=== PATIENT | female | born 1955 | race Caucasian/White ===

== ENCOUNTER 2020-05-12 10:23 | Outpatient (REF) | payer OTHER, SELFPAY ==
[2020-05-12 12:10] LABS: Hematocrit 39.1 % (37-47); Hemoglobin 12.6 g/dl (12.0-16.0); Mean Corpuscular HGB Conc 32.2 g/dl (31.0-35.0); Mean Corpuscular Hemoglobin 29.9 pg (27.0-33.0); Mean Corpuscular Volume 92.7 fL (80-98); Platelet Count 208 X10*3/uL (160-400); Red Blood Count 4.22 X10*6/uL (4.20-5.50); Red Cell Distribution Width 13.3 % (11.0-16.0); White Blood Count 6.5 X10*3/uL (4.8-10.8)
[2020-05-12 12:27] LABS: Alanine Aminotransferase 27 U/L (0-31); Albumin Level 4.5 g/dL (3.5-5.0); Alkaline Phosphatase 73 U/L (39-117); Anion Gap 12 (12-20); Aspartate Amino Transferase 20 U/L (5-31); Bilirubin Total 0.7 mg/dL (0.0-1.0); Blood Urea Nitrogen 14 mg/dL (9-16); Calcium 9.3 mg/dL (8.4-10.2); Carbon Dioxide 28 mmol/L (22-29); Chloride 104 mmol/L (96-108); Estimated Glomerular Filt Rate > 60; Glucose Fasting 124 mg/dL (60-99); Potassium 4.7 mmol/l (3.3-5.1); Sodium 139 mmol/L (135-145)
[2020-05-12 12:35] LABS: Estimated Average Glucose 140 mg/dL; Hemoglobin A1c % 6.5 %
[2020-05-12 12:41] LABS: Creatinine Urine 78.86 mg/dL; Microalbum/Creatinine Ratio Ur 21.5 ug/mg cr
[2020-05-12 12:48] LABS: Thyroid Stimulating Hormone 0.87 mIU/mL (0.32-4.0)
[2020-05-15 22:19] LABS: Vitamin B12 328 pg/mL (200-900)
[2020-05-16 18:12] LABS: Methylmalonic Acid 199 nmol/L (87-318)
== END 2020-05-12 10:24 | disposition home or self-care (01) ==
LOC: HO.LAB 10:23
PROVIDERS: PCP Internal Medicine; Visit Provider Internal Medicine
DX: I10 Essential (primary) hypertension (principal); E11.9 Type 2 diabetes mellitus without complications; E78.00 Pure hypercholesterolemia, unspecified; E53.8 Deficiency of other specified B group vitamins
CPT/HCPCS: 36415; 80053; 82043; 82607; 83036; 83921; 84443; 85027

== ENCOUNTER 2020-09-27 16:20 | Outpatient (REF) | payer OTHER, SELFPAY ==
--- NOTE | ~2020-09-27 | XR_ITS ---
EXAMINATION: XR LUMBOSACRAL SPINE CLINICAL INFORMATION: Low back pain COMPARISON: None TECHNIQUE: Three views of the lumbosacral spine. FINDINGS: There are 5 nonrib bearing lumbar vertebra. No acute fractures identified. There is a grade 1 spondylolisthesis L4-L5. There is narrowing of the L5-S1 disc space. Prominent facet arthropathy is seen L4-S1. There is some spurring involving the lower thoracic spine. No destructive bony lesion appreciated. XR/XR lumbar spine 2-3V IMPRESSION: Degenerative change of the lumbar spine most significant at L4-S1 with grade 1 spondylolisthesis L4-L5 and prominent facet arthropathy.
== END 2020-09-27 16:21 | disposition home or self-care (01) ==
LOC: HO.XRAY 16:20
PROVIDERS: PCP Internal Medicine; Visit Provider Internal Medicine
DX: M54.42 Lumbago with sciatica, left side (principal); M54.41 Lumbago with sciatica, right side; G89.29 Other chronic pain
CPT/HCPCS: 72100

== ENCOUNTER 2020-12-02 10:20 | Outpatient (REF) | payer OTHER, SELFPAY ==
[2020-12-02 11:20] LABS: Hematocrit 40.1 % (37-47); Hemoglobin 12.7 g/dl (12.0-16.0); Mean Corpuscular HGB Conc 31.7 g/dl (31.0-35.0); Mean Corpuscular Hemoglobin 29.2 pg (27.0-33.0); Mean Corpuscular Volume 92.2 fL (80-98); Mean Platelet Volume 12.7 fL (9.4-12.3); Platelet Count 207 X10*3/uL (160-400); Red Blood Count 4.35 X10*6/uL (4.20-5.50); Red Cell Distribution Width 13.7 % (11.0-16.0)
[2020-12-02 11:25] LABS: Glucose Urine UA NEG (NEG); Leukocyte Esterase Urine NEG (NEG); Nitrite Urine NEG (NEG); Specific Gravity - Urine 1.015 (1.005-1.025); Urine Blood NEG (NEG); Urine Ketones NEG (NEG); Urine Protein NEG (NEG-TRACE)
[2020-12-02 11:27] LABS: Appearance Urine CLEAR; Color Urine YELLOW
[2020-12-02 11:32] LABS: Estimated Average Glucose 143 mg/dL; Hemoglobin A1c % 6.6 %
[2020-12-02 11:38] LABS: Alanine Aminotransferase 20 U/L (0-31); Albumin Level 4.5 g/dL (3.5-5.0); Alkaline Phosphatase 75 U/L (39-117); Anion Gap 15 (12-20); Aspartate Amino Transferase 20 U/L (5-31); Bilirubin Total 0.9 mg/dL (0.0-1.0); Blood Urea Nitrogen 11 mg/dL (9-16); Calcium 9.6 mg/dL (8.4-10.2); Carbon Dioxide 27 mmol/L (22-29); Chloride 98 mmol/L (96-108); Cholesterol 154 mg/dL; Estimated Glomerular Filt Rate > 60; Glucose Fasting 128 mg/dL (60-99); HDL Cholesterol 60 mg/dL; LDL Cholesterol Calculated 81 mg/dl; Potassium 4.4 mmol/L (3.3-5.1); Sodium 136 mmol/L (135-145); Total Protein 7.3 g/dL (6.5-8.0); Triglycerides 69 mg/dL
[2020-12-02 11:43] LABS: Creatinine Urine 41.94 mg/dL; Microalbum/Creatinine Ratio Ur 57.2 ug/mg cr
[2020-12-02 12:00] LABS: Thyroid Stimulating Hormone 0.62 uIU/mL (0.32-4.0)
== END 2020-12-02 10:21 | disposition home or self-care (01) ==
LOC: HO.LAB 10:20
PROVIDERS: PCP Internal Medicine; Visit Provider Internal Medicine
DX: I10 Essential (primary) hypertension (principal); E11.9 Type 2 diabetes mellitus without complications; E78.00 Pure hypercholesterolemia, unspecified
CPT/HCPCS: 36415; 80053; 80061; 81003; 82043; 83036; 84443; 85027

== ENCOUNTER 2021-06-02 09:29 | Outpatient (REF) | payer OTHER, SELFPAY ==
[2021-06-02 10:02] LABS: Estimated Average Glucose 146 mg/dL; Hemoglobin A1c % 6.7 %
[2021-06-02 10:20] LABS: Alanine Aminotransferase 18 U/L (0-31); Albumin Level 4.5 g/dL (3.5-5.0); Alkaline Phosphatase 78 U/L (39-117); Anion Gap 13 (12-20); Aspartate Amino Transferase 17 U/L (5-31); Bilirubin Total 0.8 mg/dL (0.0-1.0); Blood Urea Nitrogen 15 mg/dL (9-16); Calcium 9.6 mg/dL (8.4-10.2); Carbon Dioxide 29 mmol/L (22-29); Chloride 104 mmol/L (96-108); Estimated Glomerular Filt Rate > 60; Glucose Random 136 mg/dL (60-115); Potassium 4.9 mmol/L (3.3-5.1); Sodium 141 mmol/L (135-145); Total Protein 7.2 g/dL (6.5-8.0)
== END 2021-06-02 09:30 | disposition home or self-care (01) ==
LOC: HO.LAB 09:29
PROVIDERS: PCP Internal Medicine; Visit Provider Internal Medicine
DX: I10 Essential (primary) hypertension (principal); E11.9 Type 2 diabetes mellitus without complications
CPT/HCPCS: 36415; 80053; 83036

== ENCOUNTER 2021-12-27 09:10 | Outpatient (REF) | payer OTHER, SELFPAY ==
[2021-12-27 09:28] LABS: MANUAL DIFF FLAG NO
[2021-12-27 09:42] LABS: Basophils Absolute Auto 0.1 X10*3/uL (0.0-0.2); Basophils Percent Auto 0.7 % (0-2); Eosinophils Absolute Auto 0.3 X10*3/uL (0.0-0.4); Eosinophils Percent Auto 3.9 % (0-4); Hemoglobin 12.9 g/dl (12.0-16.0); Imm Gran Abs Auto 0.02 X10*3/uL (0.00-0.03); Imm Gran Pct Auto 0.3 % (0.0-0.4); Lymphocytes Absolute Auto 1.1 X10*3/uL (1.2-4.9); Mean Corpuscular HGB Conc 31.5 g/dl (31.0-35.0); Mean Corpuscular Hemoglobin 28.6 pg (27.0-33.0); Mean Corpuscular Volume 90.9 fL (80.0-98.0); Mean Platelet Volume 11.7 fL (9.4-12.3); Monocytes Absolute Auto 0.5 X10*3/uL (0.1-1.2); Neutrophils Absolute Auto 5.5 x10*3/uL (2.0-8.3); Neutrophils Percent Auto 73.1 % (45-73); Platelet Count 231 X10*3/uL (160-400); Red Blood Count 4.51 X10*6/uL (4.20-5.50); Red Cell Distribution Width 13.8 % (11.0-16.0); White Blood Count 7.5 X10*3/uL (4.8-10.8)
[2021-12-27 10:01] LABS: Estimated Average Glucose 154 mg/dL
[2021-12-27 10:02] LABS: Alanine Aminotransferase 25 U/L (0-31); Albumin Level 4.4 g/dL (3.5-5.0); Alkaline Phosphatase 77 U/L (39-117); Anion Gap 13 (12-20); Aspartate Amino Transferase 21 U/L (5-31); Bilirubin Total 0.7 mg/dL (0.0-1.0); Blood Urea Nitrogen 16 mg/dL (9-16); Calcium 9.7 mg/dL (8.4-10.2); Carbon Dioxide 26 mmol/L (22-29); Chloride 104 mmol/L (96-108); Cholesterol 170 mg/dL; Estimated Glomerular Filt Rate > 60; Glucose Fasting 155 mg/dL (60-99); HDL Cholesterol 51 mg/dL; LDL Cholesterol Calculated 101 mg/dl; Potassium 4.8 mmol/L (3.3-5.1); Sodium 138 mmol/L (135-145); Total Protein 7.5 g/dL (6.5-8.0); Triglycerides 91 mg/dL
[2021-12-27 10:25] LABS: Free T4 (Free Thyroxine) 1.21 ng/dL (0.71-1.85); Thyroid Stimulating Hormone 0.94 uIU/mL (0.32-4.0)
[2021-12-27 11:22] LABS: Appearance Urine CLEAR; Color Urine YELLOW; Glucose Urine UA NEG (NEG); Leukocyte Esterase Urine NEG (NEG); Nitrite Urine NEG (NEG); Urine Blood NEG (NEG); Urine Ketones NEG (NEG); Urine Protein TRACE MG/DL (NEG-TRACE)
[2021-12-27 11:42] LABS: RBC Urine 0 /HPF (0); WBC Urine 0 /HPF (0-4)
[2021-12-27 11:56] LABS: Microalbum/Creatinine Ratio Ur 74.3 ug/mg cr
== END 2021-12-27 09:11 | disposition home or self-care (01) ==
LOC: HO.LAB 09:10
PROVIDERS: PCP Internal Medicine; Visit Provider Internal Medicine
DX: E11.9 Type 2 diabetes mellitus without complications (principal); M54.41 Lumbago with sciatica, right side; G89.29 Other chronic pain; E78.00 Pure hypercholesterolemia, unspecified
CPT/HCPCS: 36415; 80053; 80061; 81001; 82043; 83036; 84439; 84443; 85025

== ENCOUNTER 2022-06-19 09:23 | Outpatient (REF) | payer OTHER, SELFPAY ==
[2022-06-19 10:21] LABS: Estimated Average Glucose 148 mg/dL; Hemoglobin A1c % 6.8 %
[2022-06-19 10:27] LABS: Anion Gap 16 (12-20); Blood Urea Nitrogen 17 mg/dL (9-16); Calcium 9.8 mg/dL (8.4-10.2); Carbon Dioxide 28 mmol/L (22-29); Chloride 102 mmol/L (96-108); Estimated Glomerular Filt Rate > 60; Glucose Random 137 mg/dL (60-115); Potassium 5.2 mmol/L (3.3-5.1); Sodium 141 mmol/L (135-145)
== END 2022-06-19 09:24 | disposition home or self-care (01) ==
LOC: HO.LAB 09:23
PROVIDERS: PCP Internal Medicine; Visit Provider Internal Medicine
DX: E11.9 Type 2 diabetes mellitus without complications (principal)
CPT/HCPCS: 36415; 80048; 83036

== ENCOUNTER 2023-02-08 09:58 | Outpatient (REF) | payer OTHER, SELFPAY | END 2023-02-08 09:59 | disposition home or self-care (01) | LOC: HO.LAB 09:58 | PROVIDERS: Visit Provider Internal Medicine | DX: I10 Essential (primary) hypertension (principal); E11.9 Type 2 diabetes mellitus without complications | CPT/HCPCS: 36415; 80053; 80061; 81001; 82043; 83036; 84443; 85025 ==

== ENCOUNTER 2023-06-13 10:00 | Outpatient (REF) | payer MEDICARE, SELFPAY ==
[2023-06-13 10:24] LABS: MANUAL DIFF FLAG NO
[2023-06-13 11:04] LABS: Basophils Percent Auto 0.6 % (0-2); Eosinophils Absolute Auto 0.2 X10*3/uL (0.0-0.4); Eosinophils Percent Auto 2.3 % (0-4); Hematocrit 38.9 % (37.0-47.0); Hemoglobin 12.7 g/dl (12.0-16.0); Imm Gran Abs Auto 0.03 X10*3/uL (0.00-0.03); Imm Gran Pct Auto 0.4 % (0.0-0.4); Lymphocytes Absolute Auto 1.4 X10*3/uL (1.2-4.9); Mean Corpuscular HGB Conc 32.6 g/dl (31.0-35.0); Mean Corpuscular Hemoglobin 29.3 pg (27.0-33.0); Mean Corpuscular Volume 89.8 fL (80.0-98.0); Mean Platelet Volume 11.3 fL (9.4-12.3); Monocytes Absolute Auto 0.6 X10*3/uL (0.1-1.2); Neutrophils Percent Auto 69.7 % (45-73); Platelet Count 363 X10*3/uL (160-400); Red Blood Count 4.33 X10*6/uL (4.20-5.50); Red Cell Distribution Width 12.6 % (11.0-16.0); White Blood Count 7.1 X10*3/uL (4.8-10.8)
[2023-06-13 11:16] LABS: Estimated Average Glucose 143 mg/dL; Hemoglobin A1c % 6.6 % (<6.0)
[2023-06-13 11:41] LABS: Alanine Aminotransferase 13 U/L (0-31); Albumin Level 4.3 g/dL (3.5-5.0); Alkaline Phosphatase 69 U/L (39-117); Anion Gap 13 (12-20); Aspartate Amino Transferase 17 U/L (5-31); Bilirubin Total 0.9 mg/dL (0.0-1.0); Blood Urea Nitrogen 12 mg/dL (9-16); Calcium 9.3 mg/dL (8.4-10.2); Carbon Dioxide 29 mmol/L (22-29); Chloride 104 mmol/L (96-108); Estimated Glomerular Filt Rate > 60; Glucose Random 122 mg/dL (60-115); Potassium 4.6 mmol/L (3.3-5.1); Sodium 141 mmol/L (135-145); Total Protein 7.5 g/dL (6.5-8.0)
== END 2023-06-13 10:01 | disposition home or self-care (01) ==
LOC: HO.LAB 10:00
PROVIDERS: PCP Internal Medicine; Visit Provider Internal Medicine
DX: M54.41 Lumbago with sciatica, right side (principal); G89.29 Other chronic pain; R42 Dizziness and giddiness; E11.9 Type 2 diabetes mellitus without complications; I10 Essential (primary) hypertension
CPT/HCPCS: 36415; 80053; 83036; 85025

== ENCOUNTER 2023-11-17 08:29 | Outpatient (REF) | payer MEDICARE, SELFPAY ==
[2023-11-17 09:04] LABS: MANUAL DIFF FLAG NO
[2023-11-17 09:12] LABS: Basophils Absolute Auto 0.1 X10*3/uL (0.0-0.2); Basophils Percent Auto 0.9 % (0-2); Eosinophils Absolute Auto 0.4 X10*3/uL (0.0-0.4); Eosinophils Percent Auto 5.2 % (0-4); Hematocrit 37.1 % (37.0-47.0); Hemoglobin 12.1 g/dl (12.0-16.0); Imm Gran Abs Auto 0.02 X10*3/uL (0.00-0.03); Imm Gran Pct Auto 0.3 % (0.0-0.4); Lymphocytes Absolute Auto 1.3 X10*3/uL (1.2-4.9); Lymphocytes Percent Auto 19.2 % (20-40); Mean Corpuscular HGB Conc 32.6 g/dl (31.0-35.0); Mean Corpuscular Hemoglobin 29.8 pg (27.0-33.0); Mean Corpuscular Volume 91.4 fL (80.0-98.0); Mean Platelet Volume 11.9 fL (9.4-12.3); Monocytes Absolute Auto 0.6 X10*3/uL (0.1-1.2); Monocytes Percent Auto 8.4 % (2-11); Neutrophils Absolute Auto 4.6 x10*3/uL (2.0-8.3); Platelet Count 208 X10*3/uL (160-400); Red Blood Count 4.06 X10*6/uL (4.20-5.50); Red Cell Distribution Width 13.5 % (11.0-16.0); White Blood Count 6.9 X10*3/uL (4.8-10.8)
[2023-11-17 09:28] LABS: Estimated Average Glucose 146 mg/dL; Hemoglobin A1c % 6.7 % (<6.0)
[2023-11-17 09:52] LABS: Alanine Aminotransferase 15 U/L (0-31); Albumin Level 4.2 g/dL (3.5-5.0); Alkaline Phosphatase 65 U/L (39-117); Anion Gap 13 (12-20); Aspartate Amino Transferase 14 U/L (5-31); Bilirubin Total 0.7 mg/dL (0.0-1.0); Blood Urea Nitrogen 16 mg/dL (9-16); Calcium 9.7 mg/dL (8.4-10.2); Carbon Dioxide 28 mmol/L (22-29); Chloride 104 mmol/L (96-108); Cholesterol 153 mg/dL (<200); Estimated Glomerular Filt Rate > 60; Glucose Random 125 mg/dL (60-115); HDL Cholesterol 67 mg/dL (>40); LDL Cholesterol Calculated 72 mg/dL (<100); Magnesium 1.5 mg/dL (1.6-2.6); Potassium 4.6 mmol/L (3.3-5.1); Sodium 140 mmol/L (135-145); Total Protein 7.2 g/dL (6.5-8.0); Triglycerides 72 mg/dL (<150)
[2023-11-17 10:07] LABS: TSH reflex Free T4 0.99 uIU/mL (0.32-4.0)
[2023-11-17 10:24] LABS: Creatinine Urine 167.48 mg/dL; Microalbum/Creatinine Ratio Ur 22.6 ug/mg cr (<30)
[2023-11-17 10:34] LABS: Vitamin B12 714 pg/mL (200-900)
[2023-11-17 10:35] LABS: Appearance Urine Clear; Color Urine Yellow; Glucose Urine UA Negative (Negative); Leukocyte Esterase Urine Negative (Negative); Nitrite Urine Negative (Negative); PH 6.5 (5.0-9.0); Urine Blood Negative (Negative); Urine Ketones Negative (Negative); Urine Protein Negative (Neg-Trace)
== END 2023-11-17 08:30 | disposition home or self-care (01) ==
LOC: HO.LAB 08:29
PROVIDERS: PCP Internal Medicine; Visit Provider Internal Medicine
DX: I10 Essential (primary) hypertension (principal); E11.9 Type 2 diabetes mellitus without complications; R60.0 Localized edema
CPT/HCPCS: 36415; 80053; 80061; 81003; 82043; 82570; 82607; 83036; 83735; 84443; 85025

== ENCOUNTER 2024-04-14 08:08 | Outpatient (REF) | payer MEDICARE, SELFPAY ==
[2024-04-14 09:10] LABS: Estimated Average Glucose 140 mg/dL; Hemoglobin A1c % 6.5 % (<6.0); Total Hemoglobin (HGBA1C) 3132.5965 umol/L
[2024-04-14 09:47] LABS: Anion Gap 14 (12-20); Blood Urea Nitrogen 15 mg/dL (9-16); Calcium 9.7 mg/dL (8.4-10.2); Carbon Dioxide 28 mmol/L (22-29); Chloride 105 mmol/L (96-108); Estimated Glomerular Filt Rate > 60; Glucose Random 123 mg/dL (60-115); Potassium 4.5 mmol/L (3.3-5.1); Sodium 142 mmol/L (135-145)
[2024-04-14 11:35] LABS: Appearance Urine Clear; Color Urine Yellow; Glucose Urine UA Negative (Negative); Leukocyte Esterase Urine Negative (Negative); Nitrite Urine Negative (Negative); PH 7.5 (5.0-9.0); Urine Blood Negative (Negative); Urine Ketones Negative (Negative); Urine Protein Negative (Neg-Trace)
== END 2024-04-14 08:09 | disposition home or self-care (01) ==
LOC: HO.LAB 08:08
PROVIDERS: PCP Internal Medicine; Visit Provider Internal Medicine
DX: N39.41 Urge incontinence (principal); I10 Essential (primary) hypertension; R35.0 Frequency of micturition; E11.9 Type 2 diabetes mellitus without complications
CPT/HCPCS: 36415; 80048; 81003; 83036; 87086

== ENCOUNTER 2024-11-13 09:13 | Outpatient (REF) | payer MEDICARE, SELFPAY ==
--- OUTSIDE RECORDS SUMMARY | 2024-11-13 09:16 | XMS_ITS ---
Author Organization [facility] Address [address] [place] [address] Care Team Providers Care Kit Assembler Name Role Phone Campos Lawson MD Primary Care Provider Robyn Campbell [phone] REASON FOR VISIT updating health insurance Encounters Encounter Location Date Provider Diagnosis [address] [address] 08/06/2024 Robyn Chavez Plan Of Treatment Next Appt Details Provider Name:Robyn spicer, 11/24/2024 09:30:00 AM, [address] [place], [address], Progress Notes * Allen CARDENASenDOB: [birth year] (68 yo F)Acc No.[id number]:08/06/2024 Patient:?Sarina CARDENAS :1955???Age:68 Y???Sex:Female Address:[address] [place] [address], [address] * true * Date:? Generated for Printi ng/Fafrederickg/eTransmitting on:?11/13/2024 09:16 AM EDT
--- OUTSIDE RECORDS SUMMARY | 2024-11-13 09:16 | XMS_ITS ---
[facility] Organization [facility] Address [address] [place] [address] Care Team Providers Care Assistant Professor Of Mathematics Name Role Phone Campos Lawson MD Primary Care Provider Robyn Campbell Unavailable [phone] Allergies Allergen (clinical drug ingredient) Drug/Non Drug Allergy documented on EMR Reaction Allergy Type Onset Date Status ibuprofen Advil anaphylaxis Drug Allergy Activ e Aleve anaphylaxis Drug Allergy Activ e Motrin anaphylaxis Drug Allergy Activ e REASON FOR VISIT At Risk Footcare, Toe Irritation Medications Medication SIG (Take, Route, Frequency, Duration) Notes Start Date End Date Status Lisinopril-hydroCHLOROthia zide 20-12.5 MG Oral for 90 Days Active oxyCODONE-Acetaminophen 5-325 MG TAKE 1 TABLET BY MOUTH EVERY 6 HOURS NEEDED FOR PAIN Oral for 7 Days Active metFORMIN HCl 1000 MG TAKE 1 TABLET BY M OUTH TWICE A DAY WITH FOOD Oral for 90 Days Active Simvastatin 40 MG Oral for 90 Days Active valACYclovir HCl 1 GM Oral for 12 Days Active Solifenacin Succinate 10 MG Oral for 90 Days Active Extra Depth Orthopedic Shoes (1 Pair) with Customized Heat Molded Multidensity Innersoles (3 Pair) as directed Dx: NIDDM/Polyneuropathy (E11.42), Hammertoe Foot Deformity (M20.41,M20.42), Preulcerative Skin Lesion(s) (L85.1 09/08/2024 Active LORazepam 1 MG Oral for 40 Days Active Citalopram Hydrobromide 20 MG TAKE 1 TABLET BY MOUTH EVERY DAY Oral for 90 Days Activ e Social History Tobacco Use: Social History Observation [...] Are you an other tobacco user? No Problems Problem Type SNOMED Code ICD Code Onset Dates Problem Status W/U Status Risk Notes Problem Polyneuropathy due to type 2 diabetes mellitus (136072410) Type 2 diabetes mellitus with diabetic polyneuropathy (E11.42) Active confirmed Problem Acquired hammer toe of right foot (2350663943794397 ) Other hammer toe(s) (acquired), right foot (M20.41) Active confirmed Problem Acquired hammer toe of left foot (0594905504110795 ) Other hammer toe(s) (acquired), left foot (M20.42) Active confirmed Vital Signs Height 5 ft 2 in in 09/08/2024 Weight 283 lbs 09/08/2024 BMI 51.76 kg/m2 09/08/2024 Blood pressure systolic 130 mm Hg 09/08/19 25 Blood pressure diastolic 80 mm Hg 025 Encounters Encounter Location Date Provider Diagnosis [facility] [address] [address] 09/08/2024 Robyn Chavez Type 2 diabetes mellitus with diabetic polyneuropathy E11.42 ; Tinea unguium B35.1 ; Other hammer toe(s) (acquired), right foot M20.41 and Other hammer toe(s) (acquired), left foot M20.42 Assessments Encounter Date Diagnosis (ICD Code) Assessment Notes Treatment Notes Treatment Clinical Notes Section Notes 09/08/2024 Type 2 diabetes mellitus with diabetic polyneuropathy (ICD-10 - E11.42) 09/08/2024 Tinea unguium (ICD-10 - B35.1) 09/08/2024 Other hammer toe(s) (acquired), right foot (ICD-10 - M20.41) Patient Educated with: DIABETIC FOOT CARE INSTRUCTIONS. pdf (DIABETIC FOOT CARE INSTRUCTIONS. pdf) 09/08/2024 Other hammer toe(s) (acquired), left foot (ICD-10 - M20.42) Plan Of Treatment Medication Medication Name Sig Start Date Stop Date Notes Extra Depth Orthopedic Shoes (1 Pair) with Customized Heat Molded Multidensity Innersoles (3 Pair) as directed Dx: NIDDM/Polyneuropathy (E11.42), Hammertoe Foot Deformity (M20.41,M20.42), Preulcerative Skin Lesion(s) (L85.1 09/08/2024 Treatment Notes Assessment Notes Other hammer toe(s) (acquired), right fo ot Patient Educated with: DIABETIC FOOT CARE INSTRUCTIONS.pdf (DIABETIC FOOT CARE INSTRUCTIONS.pdf) Next Appt Details Follow Up: 2 Months, Reason: Provider Name:Robyn spicer, 11/24/2024 09:30:00 AM, [address] [place] [address], [phone], Procedure Notes * Category Sub-Category Detail Notes Debride Nail 6-10 Nail debridement Due to the cl inical pathology outlined in the exam findings, performance of this nail treatment is medically necessary as its management by an unskilled/untrained nonprofessional would put this patients foot and overall health at risk. Therefore, debridement to affected nail(s), as described in exam ( TA, T1, T2, T3, T4, T5, T6, T7, T8, T9, ), was performed exclusively by the physician of record to reduce/remove overall nail length, girth, thickness, subungual debris, and necrotic tissue, by manual and/or electrical means through the use of a nail nipper and/or dremel-type air grinder, to a more viable healthy nail plate or bed tissue 6-10 nails in total. Silver nitrate was used for any petechial bleeding as necessary. Definitive antifungal treatment options, both pharmaceutical and surgical, have been reviewed and discussed with the patient. The patient solely prefers the use of intermittent/as needed professional debridement services for their nail condition and understands the need for additional periodic treatments to maintain effectiveness in symptomatic relief - [id number] Keratoma Treatment Parring or Cutting o f Benign Hyperkeratotic Lesion(s) (-57) More than 4 Lesions - Due to the at risk nature of the patients medical condition as documented in the exam findings, performance of this keratoderma treatment is medically necessary as its management by an unskilled/untrained nonprofessional would put this patients foot and overall health at risk. Therefore, the benign hyperkeratotic lesions, ( 5 ) in total, locations as stated and described in the exam ( TA, T5, T1, T2, T6), were pared, and/or cut utilizing a sterile 15 blade, tissue nippers, and/or power dremel instrumentation by the physician of [facility] - [id number] Progress Notes * Allen CARDENASSkyOB: [birth year] (69 yo F)Acc No.[id number]:09/08/2024 Progress Notes Patient:?Sarina CARDENAS Provider:?Robyn Chavez DPM :1955???Age:69 Y???Sex:Female D ate:09/08/2024 Address:[address] [place] [address], [id number] Pcp:Campos Lawson MD Subjective: * Chief Complaints: * ???At Risk FootcareToe Irrit ation * HPI: ???At Risk footcare:?Pt States Last PCP Visit:?Date?08/11/2024 ???Toe pain:?Location:?B/L feet.?Duration:?several years.?Course:?worse.?Aggravated by:?shoes, any pressure.?Treatments:?change in shoes.? * ROS:?General/Constitutional:?Nausea?denies.?Vomiting?denies.?Hunger Thirst?denies.?Loss appetite?denies.?Chills?denies.?Fatigue?denies.?Fever?denies.?Night Sweats?denies.?Unexplained weight loss?denies.?Unexplained weight gain?denies.?HEENTM:?Dentures?denies.?Dizziness?denies.?Glasses/contacts?admits.?Retinopathy?den ies.?Blurred/double vision?denies.?TMJ?denies.?Discharge/drainage?denies.?Implants?denies.?Sore throat?denies.?Dental implants?denies.?Hard of hearing ?denies.?Difficulty chewing/swallowing/speaking?denies.?Nose bleeds?denies.?Sore mouth?denies.?Respiratory:?On O xygen?denies.?Pneumonia/pleurisy?denies.?Bronchitis?denies.?Emphysema?denies.?Co ughing?denies.?Cough blood?denies.?Shortness of breath?denies.?Wheezing?denies.?Cardiovascular:?Pacemaker?denies.?MVP?denies.?WPW?denies.?CHF?denies.?Heart attack?denies.?Septal defect?denies.?Rapid beat?denies.?Chest pain ?denies.?Atrial Fib.?denies.?Murmur/Palpitations?admits.?Gastrointestinal:?Hemorrhoids?admits.?Stomach/Abdominal pain?denies.?Dark blood stool?denies.?Irritable bowel ?denies.?Constipation?denies.?Diarrhea?denies.?Hematology:?Swelling?denies.?Clots?denies.?Varicose Veins?denies.?Bruising?denies.?Bleeding problem?denies.?Genitourinary:?Blood urine?denies.?Frequent/Painfu/urination/bladder control?admits.?Kidney stones?denies.?Infection (UTI)?denies.?Nephropathy?denies.?sex trans dis (STD)?denies.?Prostate?denies.?Musculoskeletal:?Hammertoes?denies.?Bunions?denies.?Back Pain?admits.?Muscle Cramps/ Resting?denies.?Muscle cramps / walking?denies.?Generalized aches and pains?admits.?Weakness?denies.?Integ.:?Baldwin?denies.?Scars?denies.?Corns/calluses?denies.?Ingrown nails?denies.?Painful nails?denies.?Open Sores?denies.?Rashes?denies.?Neurologic:?Difficulty sleeping?denies.?Brain disorder?denies.?Numbness?denies.?Balance t rouble?denies.?Confusion?denies.?Fainting/blackouts?denies.?Tingling?denies.?Shaun mors?denies.? * Medical History:? * Surgical History:?umbilical hernia repair 2011C-Section 09/1984c-section 01/1986C-section 03/1991botox in bladder 06/2024 * Hospitalization/Major Diagno stic Procedure:?umbilical hernia 2011childbirth 09/1984childbirth 01/1986childbirth 03/1991 * Family History:?Mother: dece ased, arthritis, Foot problems, high blood pressure.?Father: unknown.? * Social History:?Tobacco Use:?Tobacco Use/Smoking?Are you a:?nonsmoker ?Additional Findings: Tobacco Non-User?Current non-smoker ?Tobacco use other than smoking?Are you an other tobacco user??No ???Drugs/Alcohol:?Drugs?Have you used drugs other than those for medical reasons in the past 12 months??No ?Alcohol Screen?Did you have a drink containing alcohol in the past year??Yes ?How often did you have a drink containing alcohol in the past year??Monthly or less (1 point) ?Points?1 ?Interpretation?Negative ???Miscellaneous:?Caffeine: yes, frequency:, 1-2 cups per day. ?Children: yes, 3. ?Exercise: no. ?Marital status: . ?Occupation: Retired, [employer] [place] * Medications:?TakingSolifenac in Succinate 10 MG Tablet Oral Citalopram Hydrobromide 20 MG Tablet TAKE 1 TABLET BY MOUTH EVERY DAY Oral LORazepam 1 MG Tablet Oral valACYclovir HCl 1 GM Tablet Oral Simvastatin 40 MG Tablet Oral oxyCODONE-Acetaminophen 5-325 MG Tablet TAKE 1 TABLET BY MOUTH EVERY 6 HOURS NEEDED FOR PAIN Oral Lisinopril-hydroCHLOROthiazide 20-12.5 MG Tablet Oral metFORMIN HCl 1000 MG Tablet TAKE 1 TABLET BY MOUTH TWICE A DAY WITH FOOD Oral Medication List reviewed and reconciled with the patientTaking Solifenacin Succinate 10 MG Tablet Oral Taking Citalopram Hydrobromide 20 MG Tablet TAKE 1 TABLET BY MOUTH EVERY DAY Oral Taking LORazepam 1 MG Tablet Oral Taking valACYclovir HCl 1 GM Tablet Oral Taking Simvastatin 40 MG Tablet Oral Taking oxyCODONE-Acetaminophen 5-325 MG Tablet TAKE 1 TABLET BY MOUTH EVERY 6 HOURS NEEDED FOR PAIN Oral Taking Lisinopril-hydroCHLOROthiazide 20-12.5 MG Tablet Oral Taking metFORMIN HCl 1000 MG Tablet TAKE 1 TABLET BY MOUTH TWICE A DAY WITH FOOD Oral Medication List reviewed and reconciled with the patient * Allergies:?Motrin: anaphylax is - AllergyAleve: anaphylaxis - AllergyAdvil: anaphylaxis - Allergyyes[Allergies Verified] Objective: * Vitals:?Ht:5 ft 2 in, Wt:283 , BMI:51.76, Shoe size:11W, BP:130/80mm Hg, BS: not taken, Ht-cm: 157.48 cm, Wt-k.37 kg. * ???Past Orders: ???Lab:HEMOGLOBIN A1C (GLYCO HEMOGLOBIN) (Order Date - 08/04/2024) (Collection Date & Time - 08/04/2024 01:00 PM) ? Value Reference Range ?HEMOGLOBIN A1C % (HH) 6.5 * Examination: ???Ophthalmology Referral: ?DIABETES EYE EXAM?Procedure Performed:?Yes ?Date of Exam Performed?08/04/2024 ?Findings of Diabetic Eye Exam:?no retinopathy?Neurological: ?SENSORY:? Neurological exam demonstrates, reduced light touch sensation, reduced sharp/dull pin prick discrimination , B/L, 5.07 monofilament test performed at plantar aspects of 5 varied sites per foot shows sensation, reduced , B/L.?Nails: ?NAILS are:?Elongated, overgrown, dystrophic, lytic, greater than 3mm thick, discolored and friable with crumbly malodorous subungual debris, TA, T1, T2, T3, T4, T5, T6, T7, T8, T9.?Dermatologic: ?SKIN FINDINGS:?Skin exam reveals Keratotic lesion(s) located at, Medial plantar, TA, T5, T1, T2, T6.?Vascular: ?DP PULSES (B):?3/4, B/L.?PT PULSES (B):?3/4, B/L.?CAPILLARY FILL TIME:?immediate, all digits, B/L.?TROPHIC CONDITION-TEXTURE/ELASTICITY/TURGOR/HAIR GROWTH (B):?normal, B/L.?TEMPERTURE GRADIENT (C):?normal, warm to cool, proximal to distal, B/L, B/L.?PIGMENTATION:?normal, B/L.?EDEMA (C):?absent, B/L.?Orthopedic: ?MUSCLE STRENGTH:?5/5 all groups in a symmetrical fashion, B/L.?DIGITAL DEFORMITIES:?Digital contracture, PIPJ, 2-5 B/L, incompl-reducible to push-up test, no over, nor underlapping,?there is?evidence of shoe producing skin irritation.?FOOTWEAR:?worn, non-supportive, shoe gear properties exacerbate patient's foot/toe deformity.?General Examination: ?GENERAL APPEARANCE:?Reveals a pleasant, alert, well nourished, well- developed, well hydrated individual, who demonstrates proper attention to hygiene/body habitus, and is in no acute distress, Pt serves as own historian for office visit today.?ORIENTED:?person, place, and time.?FOOT EXAM:?Lower Extremity Neurological Exam performed:?Yes Date ?Visual exam of foot performed:?Yes ?Date?09/08/2024 ?Footwear Evaluation?Footwear Evaluation performed:?Yes??? Assessment: * Assessment: 1.?Type 2 diabetes mellitus with diabetic polyneuropathy - E11.42 (Primary)???2.?Tinea unguium - B35.1???3.?Other hammer toe(s) (acquired), right foot - M20.41???Specify :Chronic problem, Worse (4),Rx Management (4)???4.?Other hammer toe(s) (acquired), left foot - M20.42???Specify :Chronic problem, Worse (4),Rx Management (4)??? Plan: * Treatment: * Procedures:?Debride Nail 6-10:?Nail debridement?Due to the clinical pathology outlined in the exam findings, performance of this nail treatment is medically necessary as its management by an unskilled/untrained nonprofessional would put this patients foot and overall health at risk. Therefore, debridement to affected nail(s), as described in exam ( TA, T1, T2, T3, T4, T5, T6, T7, T8, T9, ), was performed exclusively by the physician of record to reduce/remove overall nail length, girth, thickness, subungual debris, and necrotic tissue, by manual and/or electrical means through the use of a nail nipper and/or dremel-type air grinder, to a more viable healthy nail plate or bed tissue 6- 10 nails in total. Silver nitrate was used for any petechial bleeding as necessary. Definitive antifungal treatment options, both pharmaceutical and surgical, have been reviewed and discussed with the patient. The patient solely prefers the use of intermittent/as needed professional debridement services for their nail condition and understands the need for additional periodic treatments to maintain effectiveness in symptomatic relief - [id number].?Keratoma Treatment:?Parring or Cutting of Benign Hyperkeratotic Lesion(s)?(-57) More than 4 Lesions - Due to the at risk nature of the patients medical condition as documented in the exam findings, performance of this keratoderma treatment is medically necessary as its management by an unskilled/untrained nonprofessional would put this patients foot and overall health at risk. Therefore, the benign hyperkeratotic lesions, ( 5 ) in total, locations as stated and described in the exam (?TA,?T5,?T1,?T2,?T6), were pared, and/or cut utilizing a sterile 15 blade, tissue nippers, and/or power dremel instrumentation by the physician of record - [id number].? * Procedure Codes:?58289 DEBRI DE NAIL, 6 OR MORE, Modifiers: XS 85366 TRIM SKIN LESIONS, OVER 4, Modifiers: XS * Preventive Medicine:? ??Counseling:?Discussion:?-04: Office or other outpatient visit for the evaluation and management of a new patient, which required a medically appropriate history and/or examination and MODERATE level of DECISION MAKING for: 1 OR MORE CHRONIC PROBLEM(S) THATS WORSENING, 2 STABLE CHRONIC PROBLEMS, A NEWLY DIAGNOSED PROBLEM WITH UNCERTAIN PROGNOSIS, AN ACUTE COMPLICATED INJURY WITH MULTIPLE TREATMENT OPTIONS, OR AN ACUTE PROBLEM WITH ACCOMPANYING SYSTEMIC SYMPTOMS, THAT POSE(S) A MODERATE RISK OF MORBIDITY. THIS CONDITION MAY ALSO INCLUDE RX DRUG MANAGEMENT, OR A DECISON FOR MINOR SURGERY. The visit on the day of the encounter encompassed interpreting the data and educating the patient as to the nature of their condition, treatment options available according to their individual PMH, meds, allergies, and overall health/living conditions, as well as any potential risks or complications that may occur from a failure to adhere to, and participate in, the recommended course of therapy. The discussion included a complete verbal, and/or written explanation of the examination results, any x-rays taken, the proposed diagnosis, and outline of the treatment plan. A schedule for future care needs was also explained. The patient verbalized an understanding of the instructions at this time and agreed to be an active participant in their treatment. If the patient should think of any questions or concerns after the visit, I have encouraged the patient to call the office.?Digital Surgery:?Digital surgery was discussed with the patient, We elected to try conservative treatment at the present time, due to the patients medical history and increased asssociated post-operative risks.?Digital Treatment:?HT- I explained to the patient the possible etiologies of Hammertoes, including genetics/foot type/shoegear/activity level/exercise routine and the risks/benefits of all the different treatment options for their pain including: No treatment at all, Rest, Ice, New/supportive/wider/deeper Shoegear, Digital Padding/Strapping/Taping/Bracing/Gel protective sleeves, Foot/Ankle AFO Bracing, Stretching exercises, Deep Tissue Massage, Arch support/shoe inserts with splay metatarsal padding, and Custom orthoses. I insisted that any digital devices be removed daily and not worn overnight for safety. The patient is to carefully examine the toes daily for any skin irritation while using any splinting or padding device. The advantages and disadvantages of each option were discussed and the patients questions re: shoegear, padding, custom vs prefabricated inserts, activity level, and consistency in home treatment regimens for optimal success were answered to their verbally confirmed satisfaction.?Fungal Nail Counseling:?The patient was counseled on the diagnosis, potential etiologies (including, but not limited to, environmental factors, genetic, immune deficiency), and the multiple treatment options for Onychomycosis. We discussed the risks and benefits of each option from performing no treatment, to ultraviolet light shoe treatment, to laser nail treatment, to applying topical antifungals, to taking oral antifungal medication, to surgical removal of the involved nail(s) with or without performing a matricectomy, or any combination thereof. We discussed the advantages and disadvantages of each of possible treatment and importance for adherence to all the recommended therapies for optimum success. This includes the necessity for weekly emery board self nail home debridements, and control the nail and skin environment as much as possible by only using a fresh, dry pair of shoes/socks each day, as well as keeping the skin as dry as possible through the use of sprays/powders if necessary. The patient was instructed to discard the emery board after use to prevent reinfection of the involved nail(s). We discussed the mycological and visual clinical effectiveness of topical vs oral antifungal treatments as well as each ones potential side effects and/or any patient- specific medication interactions. We discussed the reasons behind the important requirement of regular liver function testing with oral antifungal therapy for safety. Patient questions regarding use, dosage, successful outcomes, blood tests, and possible pharmaceutical interactions were reviewed and the patient verbalized that all answers were clearly understood.?Shoe Gear Counseling:?SHOE Rx - The patient was counseled in great detail on their muscoloskeletal foot and toe deformities which coincided with the dermatological presentations visualized on exam. We discussed how their deformities put the integrity of their feet at risk for potential pedal complications which makes the accomidative diabetic shoes and cutomizable inserts medically necessary. We discussed the different shoe and insert treatment types and options, as well as the important advantages for adhering to regularly wearing these accomidative devices daily. The patient was made aware of the fact that a failure to abide by these recommedations may be deleterious to their foot health as they are able to prevent many pedal complications such as skin irritation, skin ulceration, infection, and even loss of toe/foot/leg/or life. Time was also spent with the patient dispensing and discussing proper diabetic footcare techniques including daily skin moisturization, daily foot inspection for any interruption in skin integrity including open lesions, or sign of infection such as redness/malodor/drainage/swelling. Also discussed and recommended were procedures regarding daily shoe inspection for the presence of internal foreign bodies as well as any visualized irregular shoe or insert wear. Patient questions re: shoes, inserts, and self foot inspections were answered to their satisfaction as the patient verbally confirmed a full understanding of the above information. A Rx for Extra Depth Orthopedic Shoes with 3 pair of custom heat-molded inserts was dispensed.? ??Screening/Special Tests:?Fall Risk?Screening:?No falls in the past year ?FALLS: Screening for Future Fall Risk?Have you had any falls with injury in the past year??No * Follow Up:?2 Months * Images: * Sign off status: Completed true * Provider:?Robyn Chavez, DPM Date:?12/2024 Generated for Gabino alvarez/Senait/Hank on:?11/13/2024 09:16 AM EDT History and Physical Notes * HPI (History of Present Illness) Category Sub-Category Detail Notes Category Not es Toe pain Location: B/L feet Duration: several years Course: worse Aggravated by: shoes, any pressure Treatments: change in shoes At Risk footcare Pt States Last PCP Visit: Date: Examination Category Sub-Category Detail Notes Category Not es Neurological SENSORY: Neurological exa m demonstrates, reduced light touch sensation, reduced sharp/dull pin prick discrimination , B/L, 5.07 monofilament test performed at plantar aspects of 5 varied sites per foot shows sensation, reduced , B/L Dermatologic SKIN FINDINGS: Skin exam reveal s Keratotic lesion(s) located at, Medial plantar, TA, T5, T1, T2, T6 Orthopedic FOOTWEAR EVALUATION: worn, non-s upportive, shoe gear properties exacerbate patient's foot/toe deformity DIGITAL DEFORMITIES: Digital contracture , PIPJ, 2-5 B/L, incompl-reducible to push-up test, no over, nor underlapping, there is evidence of shoe producing skin irritation MUSCLE STRENGTH: 5/5 all groups in a symmetrical fashion, B/L General Examination GENERAL APPEARANCE: Reveals a pleasant, alert, well nourished, well-developed, well hydrated individual, who demonstrates proper attention to hygiene/body habitus, and is in no acute distress, Pt serves as own historian for office visit today FOOT EXAM: Lower Extremity Neurological Exa m performed:: Yes Date Visual exam of foot performed:: Yes Date: 09/08/2024 ORIENTED: person, place, and t david Footwear Evaluation Footwear Evaluation performe d:: Yes Ophthalmology Referral DIABETES EYE EXAM Procedure Perform ed:: Yes ?Date of Exam Performed: 08/04/2024 Findings of Diabetic Eye Exam:: no retin opathy Vascular DP PULSES (B): 3/4, B/L PT PULSES (B): 3/4, B/L CAPILLARY FILL TIME: immediate, all digi ts, B/L TEMPERTURE GRADIENT (C): normal, warm to cool, proximal to distal, B/L, B/L TROPHIC CONDITION-TEXTURE/ELASTICITY/TURGOR/HAIR GROWTH (B): normal, B/L EDEMA (C): absent, B/L PIGMENTATION: normal, B/L Nails NAILS are: Elongated, overg rown, dystrophic, lytic, greater than 3mm thick, discolored and friable with crumbly malodorous subungual debris, TA, T1, T2, T3, T4, T5, T6, T7, T8, T9
--- OUTSIDE RECORDS SUMMARY | 2024-11-13 09:17 | XMS_ITS ---
Author Organization [facility] Address [address] [place] [id number] Care Team Providers Care Insulation Worker Interior Surface Name Role Phone Renny ZUNIGA, Campos Primary Care Provider Robyn Campbell [phone] Encounters Encounter Location Date Provider Diagnosis [address] [address] 08/12/2024 Robyn Chavez Plan Of Treatment Next Appt Details Provider Name:Robyn spicer, 11/24/2024 09:30:00 AM, [address] [place], [address], Progress Notes * Allen CARDENASenDOB: [birth year] (69 yo F)Acc No.[id number]:08/12/2024 Progress Notes Patient:?Sarina CARDENAS Provider:?Robyn Chavez DPM :1955???Age:68 Y???Sex:Female D ate:08/12/2024 Address:[address] [place], [place] [address] Pcp:Campos Lawson MD Subjective: * Chief Complaints: * ??? * Medical History:? Objective: * Vitals:? Assessment: Plan: * Treatment: * Images: * The named appointment provid er may or may not be the originator of this progress note, and it is not deemed complete until electronically signed by the appointment provider. Sign off status: Pending * Provider:Wyatt Chavez DPM Date:?04/2025 Generated for Gabino alvarez/Senait/Hank on:?11/13/2024 09:16 AM EDT
[2024-11-13 09:42] LABS: MANUAL DIFF FLAG NO
[2024-11-13 10:51] LABS: Basophils Absolute Auto 0.1 X10*3/uL (0.0-0.2); Basophils Percent Auto 0.9 % (0-2); Eosinophils Absolute Auto 0.3 X10*3/uL (0.0-0.4); Eosinophils Percent Auto 4.9 % (0-4); Hematocrit 38.4 % (37.0-47.0); Hemoglobin 12.4 g/dl (12.0-16.0); Imm Gran Abs Auto 0.02 X10*3/uL (0.00-0.03); Imm Gran Pct Auto 0.3 % (0.0-0.4); Lymphocytes Absolute Auto 1.2 X10*3/uL (1.2-4.9); Lymphocytes Percent Auto 17.2 % (20-40); Mean Corpuscular HGB Conc 32.3 g/dl (31.0-35.0); Mean Corpuscular Hemoglobin 29.7 pg (27.0-33.0); Mean Corpuscular Volume 92.1 fL (80.0-98.0); Mean Platelet Volume 12.1 fL (9.4-12.3); Monocytes Absolute Auto 0.5 X10*3/uL (0.1-1.2); Monocytes Percent Auto 7.8 % (2-11); Neutrophils Absolute Auto 4.8 x10*3/uL (2.0-8.3); Neutrophils Percent Auto 68.9 % (45-73); Platelet Count 196 X10*3/uL (160-400); Red Blood Count 4.17 X10*6/uL (4.20-5.50); Red Cell Distribution Width 13.5 % (11.0-16.0); White Blood Count 6.9 X10*3/uL (4.8-10.8)
[2024-11-13 10:55] LABS: Appearance Urine Clear; Color Urine Yellow; Glucose Urine UA Negative (Negative); Leukocyte Esterase Urine Moderate (2+) (Negative); Nitrite Urine Negative (Negative); UMIC TRIGGER UA YES; Urine Blood Negative (Negative); Urine Ketones Negative (Negative); Urine Protein Negative (Neg-Trace)
[2024-11-13 10:57] LABS: Estimated Average Glucose 146 mg/dL; Hemoglobin A1C 163.3362 umol/L; Hemoglobin A1c % 6.7 % (<6.0); Total Hemoglobin (HGBA1C) 3276.0092 umol/L
[2024-11-13 11:02] LABS: Bacteria Urine Trace (None Seen); Hyaline Casts Urine 0-2 /LPF (0-2); RBC Urine 0-2 /HPF (0-2); WBC Urine 21-50 /HPF (0-5)
[2024-11-13 11:21] LABS: Alanine Aminotransferase 20 U/L (0-31); Albumin Level 4.5 g/dL (3.5-5.0); Alkaline Phosphatase 75 U/L (39-117); Anion Gap 12 (12-20); Aspartate Amino Transferase 22 U/L (5-31); Bilirubin Total 0.8 mg/dL (0.0-1.0); Blood Urea Nitrogen 18 mg/dL (9-16); Calcium 9.4 mg/dL (8.4-10.2); Carbon Dioxide 27 mmol/L (22-29); Chloride 106 mmol/L (96-108); Cholesterol 151 mg/dL (<200); Estimated Glomerular Filt Rate > 60; Glucose Random 121 mg/dL (60-115); HDL Cholesterol 65 mg/dL (>40); LDL Cholesterol Calculated 73 mg/dL (<100); Magnesium 1.5 mg/dL (1.6-2.6); Potassium 4.5 mmol/L (3.3-5.1); Sodium 140 mmol/L (135-145); Total Protein 7.3 g/dL (6.5-8.0); Triglycerides 69 mg/dL (<150)
[2024-11-13 11:39] LABS: Thyroid Stimulating Hormone 1.22 uIU/mL (0.32-4.0)
== END 2024-11-13 09:14 | disposition home or self-care (01) ==
LOC: HO.LAB 09:13
PROVIDERS: PCP Internal Medicine; Visit Provider Internal Medicine
DX: E78.00 Pure hypercholesterolemia, unspecified (principal); E11.9 Type 2 diabetes mellitus without complications; I10 Essential (primary) hypertension
CPT/HCPCS: 36415; 80053; 80061; 81001; 83036; 83735; 84443; 85025

== ENCOUNTER → 2025-04-22 08:53 | Outpatient (REF) | payer MEDICARE, SELFPAY ==
--- NOTE | 2025-04-22 08:55 | CA_ITS ---
Transthoracic Echocardiogram Patient (Last, First, Middle): Sarina Vieira A Gender: F Date of : 1955 Age: 69 Procedure Date: 04/22/2025 Procedure Type: Transthoracic Echocardiogram Location: OP Height: 154.94 cm Weight: 132. kg BSA: 2.22 m2 Heart Rate: 88 bpm BP: 132 / 78 mmHg Order Packer Or Packager: SB Referring MD: Campos Lawson MD Symptoms: HTN I10 CA MURMUR R01.1 Study Quality: Adequate ECG Rhythm: Sinus Conclusions: - The left ventricular systolic function is hyperdynamic. The visually estimated ejection fraction is >70%. - No obvious valvular pathology seen on this study. - There is mild dilatation of the ascending aorta measuring 4.00 cm. Findings Left Ventricle Normal left ventricular cavity size. There is normal left ventricular wall thickness. The left ventricular systolic function is hyperdynamic. The visually estimated ejection fraction is >70%. There is no evidence of regional wall motion abnormalities. There is no dynamic left ventricular outflow tract obstruction. Diastolic function is normal for age. Right Ventricle Normal right ventricular cavity size and systolic function. Atria Both atria are normal in size. Aortic Valve The aortic valve was not well visualized. There is no aortic valve stenosis. There is trace (trivial) aortic valve regurgitation. Mitral Valve The mitral valve appears normal. There is no mitral valve regurgitation. There is no mitral valve stenosis. Pulmonic Valve The pulmonic valve is likely normal. Tricuspid Valve Normal tricuspid valve structure. There is trace tricuspid valve regurgitation. There is no evidence of pulmonary hypertension. Great Vessels There is mild dilatation of the ascending aorta measuring 4.00 cm. Small plaque is seen in the sino tubular ridge. Venous The inferior vena cava is normal in size and collapses greater than 50% with inspiration. Pericardium/Pleural There is no evidence of pericardial effusion. Prior Study Comparison Changes noted compared to prior study dated: 10/07/2018. see comment on aorta. Recommendations, Care & Conclusions No obvious valvular pathology seen on this study. Measurements 2D Linear Measurements IVSd: 0.92 0.6-0.9/0.6-1.0 cm LVIDd: 4.93 3.9-5.3/4.2-5.9 cm LVIDd Index: 2.22 2.4-3.2/2.2-3.1 cm/m2 LVIDs: 2.58 2.0-3.6 cm LVPWd: 1.06 0.7-1.1 cm LA Diam: 4.40 2.7-3.8/3.0-4.0 cm LAIDs Index: 1.98 1.5-2.3 cm/m2 LV Mass: 217.93 67-162/88-224 g LV Mass Index: 98.16 43-95/49-115 g/m2 LVOT Diam: 2.20 3.0+(-)1.3 cm 2D Systolic Function EF 4C: 70.50 >55% EF 2C: 77.60 >55% EF BiP: 73.50 >55% Mitral Valve MV Pk E: 0.82 MV PK A: 0.97 MV Decel Time: 293.00 E/A: 0.90 E'Lateral: 7.51 E'Medial: 5.87 E/E' Med: 14.00 E/E' Lat: 11.00 PHT: 86.00 MVA PHT: 2.56 Decel [place]: 2.81 Aortic Valve AoV Pk Tramaine: 2.03 AoV Mn Tramaine: 1.41 AoV VTI: 0.38 AoV Pk Grad: 16.00 Aov Mn Grad: 9.00 WALES[place] Cont.VTI: 3.71 LVOT LVOT Pk Tramaine: 1.86 LVOT Mn Tramaine: 1.30 LVOT VTI: 0.37 LVOT Pk Grad: 14.00 LVOT Mn Grad: 8.00 LVOT Diam: 2.20 LVOT Area: 3.80 Diastolic Function MV Pk E: 0.82 MV Pk A: 0.97 E/A: 0.90 E'Medial: 5.87 E/E' Med: 14.00 E' Laterial: 7.51 E/E' Lat: 11.00 Right Ventricle TAPSE (mm): 23.10 TVS' Tramaine: 20.50 Tricuspid Valve RA Press: 8.00 Great Vessels Aorta Sinus of Valsalva: 3.40 2.0-3.5 cm Ao Asc: 4.00 2.1-3.4 cm Pulmonary Veins Pulm Vein S/D 1.70 Pulmonary Valve PV Pk Tramaine: 1.30 Peak PV Grad: 7.00 Updated in Other Vendor System with Status of Final Rocky Zepeda MD electronically signed on 04/23/2025 1:07:36 PM with status of Final
--- OUTSIDE RECORDS SUMMARY | 2025-04-22 09:37 | XMS_ITS | Clinical Summary ---
Author Organization [facility] Address [address] [facility] [address] [place] [id number] Phone Care Team Providers Care Rental Clerk Tool And Equipment Name Role Phone Campos Lawson MD Unavailable [phone] Campos Lawson MD Primary Care Provider [phone] Chris Waite MD Unavailable Allergies Active Allergy Reactions Criticality Noted Date Comments Ibuprofen Anaphylaxis High 06/23/2017 Medications cholecalciferol, vitamin D3, 25 mcg (1,000 unit) capsule Take 1,000 Units by mouth daily. Active CYANOCOBALAMIN, VITAMIN B-12, ORAL Take 1,000 mcg by mouth daily. Active estradioL (ESTRACE) 0.01 % (0.1 mg/gram) vaginal cream Place 0.5 g vaginally once a week. 3 Active meclizine (ANTIVERT) 25 mg tabletIndication s:Vertigo Take 1 tablet (25 mg total) by mouth 3 (three) times a day as needed. 30 tablet 3 Active clobetasol (TEMOVATE) 0.05 % cream Apply 1 Application topically 2 (two) times a day as needed. 4 Active LORazepam (ATIVAN) 1 MG tabletIndication s:Anxiety disorder Take 0.5 tablets (0.5 mg total) by mouth 2 (two) times a day as needed for anxiety. 40 tablet 4 Active hydrocortisone 2.5 % creamIndications :External hemorrhoid Apply topically 2 (two) times a day. 28 g 4 Active simvastatin (ZOCOR) 40 MG tabletIndication s:Hyperlipidemia take 1 tablet by mouth every day in the evening 90 tablet 3 5 Active metFORMIN (GLUCOPHAGE) 1000 MG tabletIndication s:Type 2 diabetes mellitus without complication, without long-term current use of insulin Take 1 tablet (1,000 mg total) by mouth 2 (two) times a day with meals. 180 tablet 3 5 Active citalopram (CELEXA) 20 MG tablet Take 1 tablet (20 mg total) by mouth daily. 90 tablet 3 5 Active valACYclovir (VALTREX) 1000 MG tabletIndication s:Recurrent cold sores TAKE 2 TABLETS BY MOUTH TWICE A DAY FOR 1 DAY PRN FOR COLD SORES 12 tablet 3 5 Active oxyCODONE-acetam inophen (PERCOCET) 5-325 mg per tabletIndication s:Chronic bilateral low back pain with right-sided sciatica Take 1 tablet by mouth every 6 (six) hours as needed for pain (specific location in comments). Partial fill ok 28 tablet 5 Active nystatin (NYSTOP) powder Apply 1 Application topically as needed. APPLY TO AFFECTED AREA 5 Active vibegron (GEMTESA) 75 mg tablet Take 75 mg by mouth daily. Active lisinopril (PRINIVIL,ZESTRI L) 30 MG tabletIndication s:Primary hypertension Take 1 tablet (30 mg total) by mouth daily. 90 tablet 3 5 Active hydroCHLOROthiaz kimberly 12.5 MG tabletIndication s:Primary hypertension Take 1 tablet (12.5 mg total) by mouth daily. 90 tablet 3 5 Active Active Problems Problem Noted Date Diagnosed Date Disorder of sacrum 04/19/2021 Systolic murmur 09/20/2019 Impaired fasting glucose 09/08/2017 Anxiety disorder 06/23/2017 Essential (primary) hypertension 06/23/2017 Hyperlipidemia 06/23/2017 Gallstone ileus 06/23/2017 Postmenopausal bleeding 06/23/2017 Routine medical exam 06/23/2017 Immunizations Immunization Administration Dates Next Due COVID-19 (Pre-05/26) Pfizer Vaccine, mRNA, PF 10/18/2020,09/27/2020 [id number] FORMULATION 08/04/2009 INFLUENZA, SPLIT VIRUS, TRIVALENT PF 04/20/2015 INFLUENZA, SPLIT VIRUS, TRIV ALENT W/ PRESERVATIVE IM 04/05/2016,04/20/2012 Influenza High-Dose Quadriva lent Preservative Free IM 04/22/2023 Influenza High-Dose Trivalen t Preservative Free IM 03/21/2025,03/23/2024 Influenza Quadrivalent MDCK Preservative Free IM 04/21/2019,04/09/2018,04/24/2017 Influenza Quadrivalent Preservative Free IM 03/2022,03/30/2021,04/07/2020 Influenza, Unspecified Formulation 04/17/2011,,05/04/2009 Pneumococcal conjugate PCV20 10/29/2022 Pneumococcal polysaccharide PPSV23 07/04/2008 RSV Vaccine (bivalent) 06/19/2024 Td (adult) 5 Lf Tetanus Toxo id, PF, Adsorbed 08/04/2005 Tdap 09/02/2016 Zoster recombinant 03/19/2018,12/16/2017 Family History Medical History Relation Comments Hypertension Mother Relation Status Comments Father Pt does not know her father-noted 04/22/24 Mother Sister Social History Tobacco Use Types Packs/Day Years Used Date Smoking Tobacco: Never Smokeless Tobacco: Never Tobacco Cessation:Counseling Given: Not Answered Alcohol Use Standard Drinks/Week Comments Yes 0 (1 standard drink = 0.6 oz pure alcohol) occasionally during social events Child or Family Care Answer Date Record ed Do you have problems with on e of the following making it difficult for you to work, study, or receive health care? No 10/22/2022 Education Answer Date Recorded Are you interested in more education? Not on gabriela e 10/22/2024 Are you concerned about learning? Not on file 10/22/2024 No 10/22/2024 No 10/22/2024 Food Answer Date Recorded Within the past 6 months we worried whether our food would run out before we got money to buy more. Never True 10/22/2022 Within the past 6 months the food we bought just didn't last and we didn't have enough money to get more. Never True Residential Stability Answer Date Recor ded What is your housing situation today? I have brad brenner 10/22/2022 How many times have you move d in the past 12 months? Zero (I did not move) 10/22/2022 Paying for Meds Answer Date Recorded Do you have trouble paying for medicines? No 10/22/2022 Paying Utility Bills Answer Date Record ed Do you have trouble paying your heating or elect ricity bill? No 10/22/2022 Transportation Answer Date Recorded Has the lack of transportati on kept you from medical appointments or from getting medications? No 10/22/2022 Unemployment Answer Date Recorded Are you currently unemployed or working on a part-time or temporary basis, and looking for work? No 10/22/2022 Digital Access Answer Date Recorded No 12/30/2022 No 12/30/2022 Reliable internet access at home? Not on file 12/30/2022 Device with a working camera? Not on file Intimate Partner Violence Answer Date R ecorded Denied Basic Needs Not on file 01/10/2025 In the past 12 months have y ou been in a relationship with a person who hurts, threatens, or tries to control you? No 01/10/2025 Worried food would run out Not on file 01/10 In the past 12 months have y ou been in a relationship with a person who hurts, threatens, or tries to control you? No 01/10/2025 Comments No Sex and Gender Information Value Date Recorded Sex Assigned at Female 03/13/2020 10:30 AM EDT Legal Sex Female 9:52 PM EDT Gender Identity Female 03/13/2020 10:30 AM EDT Sexual Orientation Not on file Last Filed Vital Signs Vital Sign Reading Time Taken Comments Blood Pressure 145/90 01/11/2025 9:42 AM EDT Pulse 67 01/11/2025 9:22 AM EDT Temperature 37.1 C (98.7 F) 01/11/2025 9:22 AM EDT Respiratory Rate 16 01/11/2025 9:22 AM EDT Oxygen Saturation 97% 01/11/2025 9:22 AM EDT Inhaled Oxygen Concentration - - Weight 132.3 kg (291 lb 9.6 oz) 01/11/2025 9:22 AM EDT Height 157.2 cm (5' 1.89 ) 01/11/2025 9:22 AM ED T Body Mass Index 53.52 01/11/2025 9:22 AM EDT Plan of Treatment Upcoming Encounters Date Type Department Care Team (Late st Contact Info) Description 04/22/2025 4:00 PM EDT Office Visit [facility] Internal Medicine [address] [place] [address] Campos Lawson MD [address] [place] [address] [email or web address] Health Maintenance Due Date Last Done Comments COLOGUARD 2002 FIT TEST 2002 FOBT 2002 SIGMOIDOSCOPY 2002 VIRTUAL COLONOSCOPY 2002 COLONOSCOPY 2022 2012 COLORECTAL CANCER SCREENING 2022 COVID-19 VACCINE ( season) 2025 04/01/2024, 04/22/2023, 04/11/2022, Additional history exists HEMOGLOBIN A1C 05/15/2025 11/13/2024, 04/04, 11/17/2023, Additional history exists BLOOD PRESSURE 07/13/2025 01/11/2025 DIABETIC EYE EXAM 08/13/2025 08/13/2024, , 06/06/2021, Additional history exists DEPRESSION SCREENING 01/10/2026 01/10/2025 CREATININE LEVEL 01/11/2026 01/11/2025, 07/2025, 04/14/2024, Additional history exists POTASSIUM LEVEL 01/11/2026 01/11/2025, 11/02, 04/14/2024, Additional history exists MAMMOGRAM 08/24/2026 08/24/2024, 08/04, 08/01/2022, Additional history exists Adult Td,Tdap Booster 09/02/2026 09/02/2016, 006 ZOSTER VACCINES Completed 03/19/2018, 12/16/2017 HEPATITIS C SCREENING Completed 10/09/2019 PNEUMOCOCCAL VACCINES (50+ years) Completed 10/29/2022, 07/04/2008 OSTEOPOROSIS SCREENING INITIAL (ONE-TIME) Completed 05/12/2024, 11/11/2023 RSV VACCINE Completed 06/19/2024 SMOKING STATUS SCREENING (Once After 26 Yrs) Completed 01/11/2025 INFLUENZA VACCINE Completed 03/21/2025, , 04/22/2023, Additional history exists HEPATITIS A VACCINES Aged Out No long er eligible based on patient's age to complete this topic HIB VACCINES Aged Out No longer eligi ble based on patient's age to complete this topic MENINGOCOCCAL VACCINES (ACWY) Aged Out No longer eligible based on patient's age to complete this topic MENINGOCOCCAL VACCINES (B) Aged Out N o longer eligible based on patient's age to complete this topic Medical Devices Not on file Procedures Procedure Name Priority Date/Time Associated Diagnosis Comments BASIC METABOLIC PANEL Routine 01/11/2025 10:18 AM EDT Primary hypertension OUTSIDE HEMOGLOBIN A1C Routine 11/13/2024 MAMMOGRAPHY Routine 08/24/2024 11:53 AM EST DIABETES EYE EXAM FOR RESULT ENTRY ONLY Routine 08/13/2024 9:11 AM EST DEXA SCAN Routine 05/12/2024 12:47 PM EDT OUTSIDE HEPATITIS C VIRUS SCREENING Routine 10/09/2019 from Last 3 Months or Most Recently Relevant to Health Maintenance Results * (ABNORMAL) Basic metabolic panel (01/11/2025 10:18 AM EDT) SODIUM 137 133 - 146 mmol/L [facility] CHLORIDE 99 96 - 108 mmol/L [facility] POTASSIUM 5.1 3.3 - 5.1 mmol/L [facility] CO2 28 21 - 35 mmol/L [facility] BUN 18 6 - 19 mg/dL [facility] CREATININE 0.70 0.5 - 1.5 mg/dL [facility] GLUCOSE 105(H) 70 - 99 mg/dL [facility] CALCIUM 9.9 8.4 - 10.3 mg/dL [facility] EGFR 95 >59 mL/min/1.7 3m2 [facility] Comment:Estimated glomerular filtration rate calculated using the CKD-EPI refit equation. ANION GAP 15 10 - 20 mmol/L [facility] Blood 01/11/2025 10:1 8 AM EDT 01/11/2025 10:21 AM EDT Result [facility] Campos Lawson MD LAB BLOOD ORDERABLES Final Re sult [facility] [address] [place] [address] * Outside HbA1c (11/13/2024) Hemoglobin A1c - External 6.7 % EXTERNAL NON-INTERFACED REF LAB Result [facility] Historical Provider LAB BLOOD ORDERABLES Marlene l Result Performing Organization Address [facility]/ZIP Co de Phone Number EXTERNAL NON-INTERFACED REF LAB * MAMMOGRAPHY FOR RESULT ENTRY ONLY (08/24/2024 11:53 AM EST) Historical Provider HEALTH MAINTENANCE Final Result * DIABETES EYE EXAM FOR RESULT ENTRY ONLY (08/13/2024 9:11 AM EST) Historical Provider HEALTH MAINTENANCE Final Result * DEXA SCAN (05/12/2024 12:47 PM EDT) Historical Provider HEALTH MAINTENANCE Final Result * Outside Hepatitis C Virus Screening (10/09/2019) Hepatitis C Screening - External Neg Result [facility] Historical Provider LAB BLOOD ORDERABLES Marlnee l Result from Last 3 Months or Most Recently Relevant to Health Maintenance Insurance MEDICARE PART A & B Member Subscriber Plan / Payer (Ef fective 2022-) Name:Sarina Lara Member ID:[id number] Relation to Subscriber:Self Name:Sarina Lara Subscriber ID:[id number] Payer ID:[id number] Group ID:Not on file Type:Medicare Address: [employer] [address] [place] [address] [place] [address] MEDICARE PPO BLUE REPLACEMENT MEDICARE PART A & B [facility] MEDICARE PPO BLUE REPLACEMENT MEDICARE PART A & B MEDICARE PPO BLUE REPLACEMENT MEDICARE PART A & B [facility] MEDICARE PPO BLUE REPLACEMENT MEDICARE PART A & B [place]UE RE[place]AC[place] MEDICARE PART A & [place] RE[place]AC[place] Care Teams Rental Clerk Tool And Equipment Relationship Specialty Start Date End Date Campos Lawson MD [address] [place] [phone] [email or web address] PCP - General Internal Medicine 06/23/17 Campos Lawson MD [address] [place] [phone] [email or web address] Historical LMR Provider 05/25/17 Chris Waite MD [address] [place] [address] [place] [id number] Ophthalmology 09/20/19 Additional Source Comments The information contained in this document represents components of the legal health record. It is not the complete legal health record.[facility]
== END ==
LOC: HO.CARD 08:53
PROVIDERS: PCP Internal Medicine; Visit Provider Internal Medicine
DX: R01.1 Cardiac murmur, unspecified (principal); I10 Essential (primary) hypertension
CPT/HCPCS: 93306

== ENCOUNTER → 2025-04-22 08:55 | Outpatient (BNV) | payer MEDICARE, SELFPAY | PROVIDERS: PCP Internal Medicine; Visit Provider Internal Medicine | DX: I51.89 Other ill-defined heart diseases (principal); I77.810 Thoracic aortic ectasia | CPT/HCPCS: 93306 ==

== ENCOUNTER 2025-06-27 06:55 | Outpatient (REF) | payer MEDICARE, SELFPAY ==
--- OUTSIDE RECORDS SUMMARY | 2024-06-17 03:30 | XMS_ITS ---
[facility] Address [address] [place] [address] Care Team Providers Care Metal Miner Blasting Name Role Phone Campos Lawson MD Primary Care Provider Robyn Campbell Unavailable [phone] Allergies Allergen (clinical drug ingredient) Drug/Non Drug Allergy documented on EMR Reaction Allergy Type Onset Date Status ibuprofen Advil anaphylaxis Drug Allergy Activ e Aleve anaphylaxis Drug Allergy Activ e Motrin anaphylaxis Drug Allergy Activ e Medications Medication SIG (Take, Route, Frequency, Duration) Notes Start Date End Date Status Citalopram Hydrobromide 20 MG TAKE 1 TABLET BY MOUTH EVERY DAY Oral; Duration: 90 Days Active LORazepam 1 MG Oral; Duration: 40 Days Active valACYclovir HCl 1 GM Oral; Duration: 12 Days Active Simvastatin 40 MG Oral; Duration: 90 Days Active oxyCODONE-Acetaminophen 5-325 MG TAKE 1 TABLET BY MOUTH EVERY 6 HOURS NEEDED FOR PAIN Oral; Duration: 7 Days Active metFORMIN HCl 1000 MG TAKE 1 TABLET BY M OUTH TWICE A DAY WITH FOOD Oral; Duration: 90 Days Active Solifenacin Succinate 10 MG Oral; Duration: 90 Days Active Lisinopril-hydroCHLOROthiaz kimberly 20-12.5 MG Oral; Duration: 90 Days Ac tive Social History Tobacco Use: Social History Observation Description Date Details (start date - stop date) Never Smoker NA - NA Tobacco Use/Smoking Question Answer Notes Are you a: nonsmoker Additional Findings: Tobacco Non-User Current no n-smoker Alcohol Screen Question Answer Notes Did you have a drink contain ing alcohol in the past year? Yes How often did you have a dri nk containing alcohol in the past year? Monthly or less (1 point) Points 1 Interpretation Negative Tobacco use other than smoking: Question Answer Notes Are you an other tobacco user? No Vital Signs Height 5ft 2in in 06/17/2024 Weight 283 lbs 06/17/2024 BMI 51.76 kg/m2 06/17/2024 Encounters Encounter Location Date Provider Diagnosis [address] [place] [address] 06/17/2024 Robyn Chavez Plan Of Treatment Next Appt Details Provider Name:Robyn spicer, 08/26/2025 09:30:00 AM, [address] [place], [address], Progress Notes * THERESA DevonChichoOB: [birth year] (69 yo F)Acc No.[id number]:06/17/2024 Progress Notes Patient: Viola ANDREWS Maureen Provider: Jasiel Chavez DPM :1955 A ge:68 Y S ex:Female Date:06/17/2024 Address:[address] [place] [address], [facility] Pcp:Campos Lawson MD Subjective: * Chief Complaints: * * ROS: G eneral/Constitutional: Nausea d enies. V omiting d enies. H shefali Thirst d enies. L oss appetite d enies. C hills d enies. F atigue d enies.?Fever d enies. N ight Sweats d enies. U nexplained weight loss d enies. U nexplained weight gain d enies. H EENTM: Dentures d enies. D izziness d enies. G lasses/contacts a dmits. R etinopathy d enies. B lurred/double vision d enies. T MJ?denies. D ischarge/drainage d enies. I mplants d enies. S ore throat d enies. D ental implants d enies. H lupe of hearing d enies. D ifficulty chewing/swallowing/speaking d enies. N ose bleeds d enies. S ore mouth d enies. ? R espiratory: On Oxygen d enies. P neumonia/pleurisy d enies.?Bronchitis d enies. E mphysema d enies. C oughing d enies. C ough blood?denies. S hortness of breath d enies. W heezing d enies. C ardiovascular: Pacemaker d enies. M QUALITY CONTROL ENGINEERING TECHNICIAN d enies. W PW d enies. C HF d enies. H eart attack d enies. S eptal defect d enies. R apid beat d enies. C hest pain d enies. A trial Fib. d enies. M urmur/Palpitations a dmits. G astrointestinal: Hemorrhoids a dmits. S tomach/Abdominal pain d enies. D ark blood stool d enies. I rritable bowel d enies. C onstipation d enies. D iarrhea d enies. H ematology: Swelling d enies. C lots d enies. V aricose Veins d enies. B ruising d enies. B leeding problem d enies. G enitourinary: Blood urine d enies. F requent/Painfu/urination/bladder control a dmits. K idney stones d enies. I nfection (UTI) d enies. N ephropathy d enies. s ex trans dis (STD) d enies. P rostate d enies. M usculoskeletal: Hammertoes d enies. B unions d enies. B ack Pain a dmits. M uscle Cramps/ Resting d enies. M uscle cramps / walking d enies.?Generalized aches and pains a dmits. W eakness d enies. I nteg.: [place] d enies. S cars d enies. C orns/calluses?denies. I ngrown nails d enies. P ainful nails d enies. O pen Sores d enies. R ashes d enies. N eurologic: Difficulty sleeping d enies. B rain disorder d enies. N umbness d enies. B alance trouble d enies. C onfusion d enies. F ainting/blackouts d enies. T ingling d enies. T remors d enies. * Medical History: A nxiety, Back,Hip,and Knee pain, Covid-19, Depression, type II diabetes, High Blood Pressure, Psoriasis/eczema, Reflux ( GERD), Sciatica, Measles, Mumps, Chicken pox. * Surgical History: u mbilical hernia repair 2011, 09/1984, 01/1986, 03/1991. * Hospitalization/Major Diagno stic Procedure: u mbilical hernia 2011, childbirth 09/1984, childbirth 01/1986, childbirth 03/1991. * Family History: M other: , arthritis, Foot problems, high blood pressure. F ather: unknown. * Social History: T obacco Use: T obacco Use/Smoking A re you a: n onsmoker A dditional Findings: Tobacco Non-User C urrent non-smoker Tobacco use other than smoking A re you an other tobacco user? N o D rugs/Alcohol: D rugs H ave you used drugs other than those for medical reasons in the past 12 months? N o Alcohol Screen D id you have a drink containing alcohol in the past year? Y es H ow often did you have a drink containing alcohol in the past year? M onthly or less (1 point) P oints 1 I nterpretation N egative M iscellaneous: C affeine: yes, frequency:, 1-2 cups per day. Children: yes, 3. Occupation: Retired. * Medications: T aking Solifenacin Succinate 10 MG Tablet Oral , Taking Citalopram Hydrobromide 20 MG Tablet TAKE 1 TABLET BY MOUTH EVERY DAY Oral , Taking LORazepam 1 MG Tablet Oral , Taking valACYclovir HCl 1 GM Tablet Oral , Taking Simvastatin 40 MG Tablet Oral , Taking oxyCODONE-Acetaminophen 5-325 MG Tablet TAKE 1 TABLET BY MOUTH EVERY 6 HOURS NEEDED FOR PAIN Oral , Taking Lisinopril-hydroCHLOROthiazide 20-12.5 MG Tablet Oral , Taking metFORMIN HCl 1000 MG Tablet TAKE 1 TABLET BY MOUTH TWICE A DAY WITH FOOD Oral * Allergies: M otrin: anaphylaxis - Allergy, Aleve: anaphylaxis - Allergy, Advil: anaphylaxis - Allergy. Objective: * Vitals: H t: 5ft 2in, Wt:283, BMI:51.76, Shoe size: 11W, Ht-cm: 157.48 cm, Wt-k.37 kg. Assessment: Plan: * Treatment: * Images: * The named appointment provid er may or may not be the originator of this progress note, and it is not deemed complete until electronically signed by the appointment provider. Sign off status: Pending * Provider: Jasiel Chavez DPM Date: 08/17/2023 Generated for Gabino alvarez/Senait/Hank on: 08/27/2024 07:08 AM EST
--- OUTSIDE RECORDS SUMMARY | 2024-08-12 03:30 | XMS_ITS ---
Author Organization [facility] Address [address] [place] [address] Care Team Providers Care Train Crew Member Name Role Phone Renny ZUNIGA, Campos Primary Care Provider Robyn Campbell Unavailable [phone] Encounters Encounter Location Date Provider Diagnosis [address] [address] 08/12/2024 Robyn Chavez Plan Of Treatment Next Appt Details Provider Name:Robyn spicer, 08/26/2025 09:30:00 AM, [address] [place], [address], Progress Notes * Allen CARDENASenDOB: [birth year] (69 yo F)Acc No.[id number]:08/12/2024 Progress Notes Patient: Viola ANDREWS Sarina Provider: Jasiel Chavez DPM :1955 A ge:68 Y S ex:Female Date:08/12/2024 Address:[address] [place], [place] [address] [id number] Pcp:Campos Lawson MD Subjective: * Chief Complaints: * * Medical History: Objective: * Vitals: Assessment: Plan: * Treatment: * Images: * The named appointment provid er may or may not be the originator of this progress note, and it is not deemed complete until electronically signed by the appointment provider. Sign off status: Pending * Provider: Jasiel Chavez, SELVIN Date: 0 08/12/2024 Generated for Gabino alvarez/Senait/Hank on: 08/27/2024 07:08 AM EST
--- OUTSIDE RECORDS SUMMARY | 2025-06-27 07:08 | XMS_ITS | Clinical Summary ---
Author Organization [facility] Address [address] [place] [address] Phone Care Team Providers Care Embossing Calender Operator Name Role Phone Campos Lawson MD Unavailable [phone] Campos Lawson MD Primary Care Provider [phone] Chris Waite MD Unavailable [phone] Allergies Active Allergy Reactions Criticality Noted Date Comments Ibuprofen Anaphylaxis High 06/23/2017 Medications cholecalciferol , vitamin D3, 25 mcg (1,000 unit) capsule Take 1,000 Units by mouth daily. Active CYANOCOBALAMIN, VITAMIN B-12, ORAL Take 1,000 mcg by mouth daily. Active meclizine (ANTIVERT) 25 mg tabletIndicatio ns:Vertigo Take 1 tablet (25 mg total) by mouth 3 (three) times a day as needed. 30 tablet 06/06/20 23 Active clobetasol (TEMOVATE) 0.05 % cream Apply 1 Application topically 2 (two) times a day as needed. 12/10/19 24 Active hydrocortisone 2.5 % creamIndication s:External hemorrhoid Apply topically 2 (two) times a day. 28 g 04/22/20 24 Active simvastatin (ZOCOR) 40 MG tabletIndicatio ns:Hyperlipidem ia take 1 tablet by mouth every day in the evening 90 tablet 3 08/12/19 25 Active metFORMIN (GLUCOPHAGE) 1000 MG tabletIndicatio ns:Type 2 diabetes mellitus without complication, without long-term current use of insulin Take 1 tablet (1,000 mg total) by mouth 2 (two) times a day with meals. 180 tablet 3 08/12/19 25 Active citalopram (CELEXA) 20 MG tablet Take 1 tablet (20 mg total) by mouth daily. 90 tablet 3 08/12/19 25 Active valACYclovir (VALTREX) 1000 MG tabletIndicatio ns:Recurrent cold sores TAKE 2 TABLETS BY MOUTH TWICE A DAY FOR 1 DAY PRN FOR COLD SORES 12 tablet 3 12/10/19 25 Active nystatin (NYSTOP) powder Apply 1 Application topically as needed. APPLY TO AFFECTED AREA 10/23/19 25 Active lisinopril (PRINIVIL,ZESTR IL) 30 MG tabletIndicatio ns:Primary hypertension Take 1 tablet (30 mg total) by mouth daily. 90 tablet 3 01/12/20 25 Active hydroCHLOROthia zide 12.5 MG tabletIndicatio ns:Primary hypertension Take 1 tablet (12.5 mg total) by mouth daily. 90 tablet 3 01/12/20 25 Active oxyCODONE-aceta minophen (PERCOCET) 5-325 mg per tabletIndicatio ns:Chronic bilateral low back pain with right-sided sciatica Take 1 tablet by mouth every 6 (six) hours as needed for pain (specific location in comments). Partial fill ok 28 tablet 04/22/20 25 Active LORazepam (ATIVAN) 1 MG tabletIndicatio ns:Anxiety disorder TAKE 0.5 TABLETS BY MOUTH 2 TIMES A DAY NEEDED FOR ANXIETY. 40 tablet 1 06/22/20 25 Active LORazepam (ATIVAN) 1 MG tabletIndicatio ns:Anxiety disorder Take 0.5 tablets (0.5 mg total) by mouth 2 (two) times a day as needed for anxiety. 40 tablet 04/19/20 24 025 Discontinued Active Problems Problem Noted Date Diagnosed Date Disorder of sacrum 04/19/2021 Systolic murmur 09/20/2019 Impaired fasting glucose 09/08/2017 Anxiety disorder 06/23/2017 Essential (primary) hypertension 06/23/2017 Hyperlipidemia 06/23/2017 Gallstone ileus 06/23/2017 Postmenopausal bleeding 06/23/2017 Routine medical exam 06/23/2017 Encounters Date Type Department Care Team Description 06/22/2025 Refill [facility] Internal Medicine [address] [place] [address] Campos Lawson MD Medication Refill 04/25/2025 Orders Only [facility] Internal Medicine [address] [place] [address] Provider, MD Dmitri 04/22/2025 4:00 PM EDT Office Visit [facility] Internal Medicine [address] [place] [address] Campos Lawson MD Benign essential hypertension (Primary Dx); Chronic bilateral low back pain with right-sided sciatica; Chronic, continuous use of opioids from Last 3 Months Immunizations Immunization Administration Dates Next Due COVID-19 (Pre-05/26) Pfizer Vaccine, mRNA, PF 04/25/2025,10/18/2020,09/27/2020 [id number] FORMULATION 08/04/2009 INFLUENZA, SPLIT VIRUS, TRIVALENT PF 04/20/2015 INFLUENZA, SPLIT VIRUS, TRIV ALENT W/ PRESERVATIVE IM 04/05/2016,04/20/2012 Influenza High-Dose Quadriva lent Preservative Free IM 04/22/2023 Influenza High-Dose Trivalen t Preservative Free IM 03/21/2025,03/23/2024 Influenza Quadrivalent MDCK Preservative Free IM 04/21/2019,04/09/2018,04/24/2017 Influenza Quadrivalent Preservative Free IM 0903/2022,03/30/2021,04/07/2020 Influenza, Unspecified Formulation 04/17/2011,,05/04/2009 Pneumococcal conjugate PCV20 [...] your housing situation today? I have brad sing 10/22/2022 How many times have you move [...] Sign Reading Time Taken Comments Blood Pressure 136/74 04/22/2025 5:14 PM EDT Pulse 79 04/22/2025 4:18 PM EDT Temperature 35.9 C (96.7 F) 04/22/2025 4:18 PM EDT Respiratory Rate 16 04/22/2025 4:18 PM EDT Oxygen Saturation 97% 04/22/2025 4:18 PM EDT Inhaled Oxygen Concentration - - Weight 127.5 kg (281 lb) 04/22/2025 4:18 PM EDT Height 157.2 cm (5' 1.89 ) 04/22/2025 4:18 PM ED T Body Mass Index 51.58 04/22/2025 4:18 PM EDT Plan of Treatment Upcoming Encounters Date Type Department Care Team (Late st Contact Info) Description 08/26/2025 8:00 AM EST Office Visit [facility] Internal Medicine [address] [place] [address] Campos Lawson MD [address] [place] [address] Health Maintenance Due Date Last Done Comments COLOGUARD 2002 FIT TEST 2002 FOBT 2002 SIGMOIDOSCOPY 2002 VIRTUAL COLONOSCOPY 2002 COLONOSCOPY 2022 2012 COLORECTAL CANCER SCREENING 2022 HEMOGLOBIN A1C 05/15/2025 11/13/2024, 04/04, 11/17/2023, Additional history exists COVID-19 VACCINE ( season) 2025 04/25/2025, 04/01/2024, 04/22/2023, Additional history exists DIABETIC EYE EXAM 08/13/2025 08/13/2024, , 06/06/2021, Additional history exists BLOOD PRESSURE 10/20/2025 04/22/2025 DEPRESSION SCREENING 01/10/2026 01/10/2025 CREATININE LEVEL 01/11/2026 [...] Completed 05/12/2024, 11/11/2023 RSV VACCINE Completed 06/19/2024 INFLUENZA VACCINE Completed 03/21/2025, , 04/22/2023, Additional history exists SMOKING STATUS SCREENING (Once After 26 Yrs) Completed 04/22/2025 HEPATITIS A VACCINES Aged Out No long [...] Procedure Name Priority Date/Time Associated Diagnosis Comments OUTSIDE ECHO Routine 04/22/2025 10:14 AM EDT BASIC METABOLIC PANEL (BMP) Routine 01/11/2025 10:18 AM EDT Primary hypertension OUTSIDE HEMOGLOBIN A1C Routine 11/13/2024 HM MAMMOGRAPHY Routine 08/24/2024 11:53 AM EST DIABETES EYE EXAM FOR RESULT ENTRY ONLY Routine 08/13/2024 9:11 AM EST DEXA SCAN Routine 05/12/2024 12:47 PM EDT OUTSIDE HEPATITIS C VIRUS SCREENING Routine 10/09/2019 from Last 3 Months or Most Recently Relevant to Health Maintenance Results * Outside Echo Report Only (04/22/2025 10:14 AM EDT) Historical Provider CV ECHO ORDERABLES Final Result * (ABNORMAL) Basic metabolic panel (01/11/2025 10:18 AM EDT) SODIUM 137 133 - 146 mmol/L [facility] CHLORIDE 99 96 - 108 mmol/L [facility] POTASSIUM 5.1 3.3 - 5.1 mmol/L [facility] CO2 28 21 - 35 mmol/L [facility] BUN 18 6 - 19 mg/dL [facility] CREATININE 0.70 0.5 - 1.5 mg/dL [facility] GLUCOSE 105(H) 70 - 99 mg/dL [facility] CALCIUM 9.9 8.4 - 10.3 mg/dL [facility] EGFR 95 >59 mL/min/1.7 3m2 [facility] Comment:Estimated glomerular filtration rate calculated using the CKD-EPI refit equation. ANION GAP 15 10 - 20 mmol/L [facility] Blood 01/11/2025 10:1 8 AM EDT 01/11/2025 10:21 AM EDT us Campos Lawson MD LAB BLOOD BKR ORDERABLES Marlene l Result [facility] [address] [place] [address] * Outside HbA1c (11/13/2024) Hemoglobin A1c - External 6.7 % EXTERNAL NON-INTERFACED REF LAB Historical Provider LAB BLOOD ORDERABLES Marlene l Result EXTERNAL NON-INTERFACED REF LAB * MAMMOGRAPHY FOR RESULT ENTRY ONLY (08/24/2024 11:53 AM EST) Historical Provider HEALTH MAINTENANCE Final Result * DIABETES EYE EXAM FOR RESULT ENTRY ONLY (08/13/2024 9:11 AM EST) Historical Provider HEALTH MAINTENANCE Final Result * DEXA SCAN (05/12/2024 12:47 PM EDT) [facility] Provider HEALTH MAINTENANCE Final Result * Outside Hepatitis C Virus Screening (10/09/2019) Hepatitis C Screening - External Neg Historical Provider LAB BLOOD ORDERABLES Marlene l Result from Last 3 Months or Most Recently Relevant to Health Maintenance Insurance MEDICARE PART A & B [facility] MEDICARE PPO BLUE REPLACEMENT MEDICARE PART A & B MEDICARE PPO BLUE REPLACEMENT MEDICARE PART A & B [facility] MEDICARE PPO BLUE REPLACEMENT MEDICARE PART A & B [place] REPLACEMENT MEDICARE PART A & B Member Subscriber Plan / Payer (Ef fective 2022-) Name:Sarina Lara Member ID:[id number] Relation to Subscriber:Self Name:Sarina Lara Subscriber ID:[id number] Payer ID:[id number] Group ID:Not on file Type:Medicare Address: [employer] [address] [place] [address] [place] [address] MEDICARE PPO BLUE REPLACEMENT MEDICARE PART A & B MEDICARE PPO BLUE REPLACEMENT Care Teams Embossing Calender Operator Relationship Specialty Start Date End Date Campos Lawson MD [address] [place] [address] [email or web address] PCP - General Internal Medicine 06/23/17 Campos Lawson MD [address] [place] [address] [email or web address] Historical LMR Provider 05/25/17 Chris Waite MD [address] [place] [address] [place] [address] Ophthalmology 09/20/19 Additional Source Comments The information contained in this document represents components of the legal health record. It is not the complete legal health record.[facility]
--- OUTSIDE RECORDS SUMMARY | 2025-06-27 07:08 | XMS_ITS | Encounter Summary ---
Author Organization [facility] Address [address] [place] [address] Phone Care Team Providers Care Director Of Assisted Living Name Role Phone Campos Lawson MD Unavailable [phone] Campos Lawson MD Primary Care Provider [phone] Chris Waite MD Unavailable Reason for Visit * Reason Comments Medication Refill Encounter Details Date Type Department Care Team (Late st Contact Info) Description 06/22/2025 Refill [facility] Internal Medicine [address] [place], [place] [id number] Campos Lawson MD [address] [place] [address] [email or web address] Medication Refill Social History Tobacco Use Types Packs/Day Years Used Date Smoking Tobacco: Never Smokeless Tobacco: Never Alcohol Use Standard Drinks/Week Comments Yes 0 [...] AM EDT Sexual Orientation Not on file documented as of this encounter Progress Notes * Nick Sandy MA - 06/22/2025 9:42 AM EST Images from the original note were not included. Rx Care Gap Status - Instructions for Clinical Staff (prescriber discretion applies): > Mismatch review guide > Check PDMP for all controlled medication requests. Visit Info Last visit: 04/22/2025 Campos Lawson MD - Internal Medicine [facility] > Requested f/u: Not specified Upcoming visit: 08/26/2025 Campos Lawson MD - Internal Medicine [facility] ACTIONS TAKEN BY Nick Sandy MA - Checked PDMP/MassPAT. Non-Opioid Controlled Substance With PDMP Rx Protocol - lorazepam Renewal is at prescriber discretion. Visit in the past 12 months: Yes documented in this encounter Plan of Treatment Upcoming Encounters Date Type Department Care Team (Late st Contact Info) Description 08/26/2025 8:00 AM EST Office Visit [facility] Internal Medicine [address] [place] [address] Campos Lawson MD [address] [place] [address] [email or web address] documented as of this encounter Visit Diagnoses Diagnosis Anxiety disorder Anxiety state, unspecified documented in this encounter Additional Health Concerns Assessment Noted Time PHQ-2 Depression Total Score: 0 01/11/20 25 9:25 AM EDT documented as of this encounter Care Teams Director Of Assisted Living Relationship Specialty Start Date End Date Campos Lawson MD [address] [place] [address] PCP - General Internal Medicine 06/23/17 Campos Lawson MD [address] [place] [address] Historical LMR Provider 05/25/17 Chris Waite MD [address] [place] [address] Dr JEAN, [place] [address] Ophthalmology 09/20/19 documented as of this encounter Additional Source Comments The information contained in this document represents components of the legal health record. It is not the complete legal health record.[facility]
--- OUTSIDE RECORDS SUMMARY | 2025-06-27 07:08 | XMS_ITS | Patient Health Record ---
Author Organization [facility] Address [address] [place] [phone] Care Team Providers Care Lease Buyer Name Role Phone David Suarez Jr Reason For Referral No Information Plan Of Treatment No Information
--- OUTSIDE RECORDS SUMMARY | 2025-06-27 07:08 | XMS_ITS | Patient Health Record ---
Author Organization [facility] Address [address] [place] [address] Care Team Providers Care Firebreak Cutter Name Role Phone Campos Lawson MD Primary Care Provider Robyn Campbell Unavailable [phone] Allergies Allergen (clinical drug ingredient) Drug/Non Drug Allergy documented on EMR Reaction Allergy Type Onset Date Status ibuprofen Advil anaphylaxis Drug Allergy Activ e Aleve anaphylaxis Drug Allergy Activ e Motrin anaphylaxis Drug Allergy Activ e Results Component Value Reference Range Notes HEMOGLOBIN A1C (GLYCOHEMOGLO BIN) Reviewed date:09/08/2024 01:01:00 PM Interpretation: Performing Lab: Notes/Report: HEMOGLOBIN A1C % (HH) 6.5 HEMOGLOBIN A1C (GLYCOHEMOGLO BIN) Reviewed date:05/18/2025 09:18:04 AM Interpretation: Performing Lab: Notes/Report: HEMOGLOBIN A1C % (HH) 6.7 HEMOGLOBIN A1C (GLYCOHEMOGLO BIN) Reviewed date:02/16/2025 09:04:11 AM Interpretation: Performing Lab: Notes/Report: HEMOGLOBIN A1C % (HH) 6.7 Reason For Referral No Information Medications Medication SIG (Take, Route, Frequency, Duration) Notes Start Date End Date Status Lisinopril-hydroCHLOROth iazide 10-12.5 MG 3 tablet Orally Once a day; Duration: 90 days Active Solifenacin Succinate 10 MG Oral; Duration: 90 Days Not- Taking Extra Depth Orthopedic Shoes (1 Pair) with Customized Heat Molded Multidensity Innersoles (3 Pair) as directed Dx: NIDDM/Polyneuropathy (E11.42), Hammertoe Foot Deformity (M20.41,M20.42), Preulcerative Skin Lesion(s) (L85.1 09/08/2024 Active metFORMIN HCl 1000 MG TAKE 1 TABLET BY M OUTH TWICE A DAY WITH FOOD Oral; Duration: 90 Days Active valACYclovir HCl 1 GM Oral; Duration: 12 Days Active LORazepam 1 MG Oral; Duration: 40 Days Active Citalopram Hydrobromide 20 MG TAKE 1 TABLET BY MOUTH EVERY DAY Oral; Duration: 90 Days Active oxyCODONE-Acetaminophen 5-325 MG TAKE 1 TABLET BY MOUTH EVERY 6 HOURS NEEDED FOR PAIN Oral; Duration: 7 Days Active Simvastatin 40 MG Oral; Duration: 90 Days Active Immunizations Vaccine Route Administration Date Status Comme nts Influenza Unknown 05/20/2024 Administered Influenza Unknown 05/04/2025 Administered Social History Tobacco Use: Social History Observation Description Date Details (start date - stop date) Never Smoker NA - NA Tobacco use other than smoking: Question Answer Notes Are you an other tobacco user? No Tobacco Control (Standard) Question Answer Notes Tobacco use: Nonsmoker Additional Findings: Tobacco non-user Current no nsmoker AUDIT-C (Standard) Question Answer Notes Did you have a drink contain ing alcohol in the past year? Yes How often did you have a dri nk containing alcohol in the past year? Monthly or less (1 point) How many drinks did you have on a typical day when you were drinking in the past year? 1 or 2 drinks (0 point) How often did you have six o r more drinks on one occasion in the past year? Never (0 point) Points 1 Interpretation Negative Problems Problem Type SNOMED Code ICD Code Onset Dates Problem Status W/U Status Risk Notes Problem Acquired hammer toe of right foot (6851904793287243 ) Other hammer toe(s) (acquired), right foot (M20.41) Active confirmed Problem Acquired hammer toe of left foot (7879697007894113 ) Other hammer toe(s) (acquired), left foot (M20.42) Active confirmed Problem Polyneuropathy due to type 2 diabetes mellitus (696179532) Type 2 diabetes mellitus with diabetic polyneuropathy (E11.42) Active confirmed Vital Signs Blood pressure diastolic 87 mm Hg 05/18/2025 Height 5ft 2in in 05/18/2025 Blood pressure systolic 130 mm Hg 05/18/2025 Weight 278 lbs 05/18/2025 BMI 50.84 kg/m2 05/18/2025 Encounters Encounter Location Date Provider Diagnosis [address] [address] 09/08/2024 Robyn Chavez Type 2 diabetes mellitus with diabetic polyneuropathy E11.42 ; Tinea unguium B35.1 ; Other hammer toe(s) (acquired), right foot M20.41 and Other hammer toe(s) (acquired), left foot M20.[address] [address] 11/24/2024 Robyn Chavez Type 2 diabetes mellitus with diabetic polyneuropathy E11.42 and Tinea unguium B35.[address] [address] 02/16/2025 Robyn Ramiresa Type 2 diabetes mellitus with diabetic polyneuropathy E11.42 and Tinea unguium B35.[address] [address] 05/18/2025 Robyn Chavez Type 2 diabetes mellitus with diabetic polyneuropathy E11.42 and Tinea unguium B35.[address] [address] 08/06/2024 Robyn Chavez Assessments Encounter Date Diagnosis (ICD Code) Assessment Notes Treatment Notes Treatment Clinical Notes Section Notes 02/16/2025 Type 2 diabetes mellitus with diabetic polyneuropathy (ICD-10 - E11.42) 09/08/2024 Type 2 diabetes mellitus with diabetic polyneuropathy (ICD-10 - E11.42) 09/08/2024 Tinea unguium (ICD-10 - B35.1) 11/24/2024 Type 2 diabetes mellitus with diabetic polyneuropathy (ICD-10 - E11.42) 11/24/2024 Tinea unguium (ICD-10 - B35.1) 05/18/2025 Type 2 diabetes mellitus with diabetic polyneuropathy (ICD-10 - E11.42) 05/18/2025 Tinea unguium (ICD-10 - B35.1) 02/16/2025 Tinea unguium (ICD-10 - B35.1) 09/08/2024 Other hammer toe(s) (acquired), right foot (ICD-10 - M20.41) Patient Educated with: DIABETIC FOOT CARE INSTRUCTIONS. pdf (DIABETIC FOOT CARE INSTRUCTIONS. pdf) 09/08/2024 Other hammer toe(s) (acquired), left foot (ICD-10 - M20.42) Plan Of Treatment Next Appt Details Provider Name:Robyn spicer, 08/26/2025 09:30:00 AM, [address] [place] [address], [phone], Insurance Providers Payer Name Payer Address Payer Phone Subscriber Number Group Number Insured Name Patient Relationship to Insured Coverage Start Date Coverage End Date [employer] 65 Medicare Preferred [address] [place] [address] [id number] Sarina aFrfan Self - patient is the insured Medical (General) History Medical History History ICD Code Anxiety Back,Hip,and Knee pain covid-19 Depression type II diabetes High Blood Pressure Psoriasis/eczema Reflux ( GERD) Sciatica Measles Mumps Chicken pox Surgical History Surgery Date(Month/Year) umbilical hernia repair 2011 09/1984 01/1986 03/1991 botox in bladder 06/2024, 02/25 Hospitalization History Reason Date(Month/Year) childbirth 03/1991 childbirth 01/1986 childbirth 09/1984 umbilical hernia 2012
[2025-06-27 07:15] LABS: MANUAL DIFF FLAG NO
[2025-06-27 08:15] LABS: Hematocrit 38.5 % (37.0-47.0); Hemoglobin 12.3 g/dl (12.0-16.0); Imm Gran Abs Auto 0.02 X10*3/uL (0.00-0.03); Imm Gran Pct Auto 0.2 % (0.0-0.4); Lymphocytes Absolute Auto 1.6 X10*3/uL (1.2-4.9); Mean Corpuscular HGB Conc 31.9 g/dl (31.0-35.0); Mean Corpuscular Hemoglobin 29.9 pg (27.0-33.0); Mean Corpuscular Volume 93.7 fL (80.0-98.0); NRBC Abs Auto 0.000 X10*3/uL (0.0-0.012); NRBC Pct Auto 0.0 /100WBC (0.0-0.2); Platelet Count 209 X10*3/uL (160-400); Red Blood Count 4.11 X10*6/uL (4.20-5.50); White Blood Count 8.0 X10*3/uL (4.8-10.8)
[2025-06-27 08:43] LABS: Alanine Aminotransferase 16 U/L (0-31); Albumin Level 4.6 g/dL (3.5-5.0); Alkaline Phosphatase 78 U/L (39-117); Anion Gap 11 (12-20); Aspartate Amino Transferase 18 U/L (5-31); Blood Urea Nitrogen 22 mg/dL (9-16); Calcium 9.6 mg/dL (8.4-10.2); Carbon Dioxide 30 mmol/L (22-29); Chloride 104 mmol/L (96-108); Estimated Glomerular Filt Rate > 60; Potassium 4.3 mmol/L (3.3-5.1); Sodium 141 mmol/L (135-145); Total Protein 7.4 g/dL (6.5-8.0)
== END 2025-06-27 06:56 | disposition home or self-care (01) ==
LOC: HO.LAB 06:55
PROVIDERS: PCP Internal Medicine; Visit Provider Internal Medicine
DX: I10 Essential (primary) hypertension (principal); M54.41 Lumbago with sciatica, right side; G89.29 Other chronic pain; Z13.1 Encounter for screening for diabetes mellitus
CPT/HCPCS: 36415; 80053; 83036; 85025